=== PATIENT | female | born 1935 | race Caucasian/White ===

== ENCOUNTER 2017-03-20 21:14 | Emergency (ER) | payer MEDICARE, BC ==
--- NOTE | 2017-03-20 21:25 | EDM.PDOC ---
ED HPI GENERAL MEDICAL PROBLEM - General Chief Complaint: Neuro Symptoms/Deficits Stated Complaint: GENERAL, COMING BY AMBULANCE Time Seen by Provider: 03/20/17 21:20 Source of Information: Reports: EMS History Limitations: Reports: Physical Impairment - History of Present Illness INITIAL COMMENTS - FREE TEXT/NARRATIVE: EMS states were called to stroke by pt's niece who states pt was fine @ 8:30pm last night then ~ 1/2 hour ago notice pt's speech was slurred on the phone. pt' s neighbour states pt's speech seems to be more slurring than usual. pt alert smiling pleasant in no acute distress. follows commands and understands questions but with slurred speech. - Related Data Allergies Allergy/AdvReac Type Severity Reaction Status Date / Time No Known Allergies Allergy Verified 03/20/17 22:08 Home Meds: Home Meds Atenolol [Tenormin] 50 mg PO DAILY 11/04/14 [History] Folic Acid 1,200 mcg PO DAILY 11/04/14 [History] Hydrochlorothiazide 25 mg PO DAILY 11/04/14 [History] Ibuprofen [Advil] 400 mg PO Q8HR PRN 11/04/14 [History] Methotrexate Sodium [Methotrexate] 20 mg PO WEEKLY 11/04/14 [History] Multivit &Minerals/Ferrous Fum [Complete Multivit-Mineral] 1 cap PO DAILY [History] Lisinopril 10 mg PO DAILY 08/19/15 [History] Past Medical History Cardiovascular History: Reports: Hypertension Respiratory History: Reports: COPD Musculoskeletal History: Reports: Osteoarthritis, RA Oncologic (Cancer) History: Reports: Ovarian - Infectious Disease History Infectious Disease History: Reports: Chicken Pox, Measles Social & Family History - Tobacco Use Smoking Status *Q: Never Smoker Second Hand Smoke Exposure: Yes - Alcohol Use Days Per Week of Alcohol Use: 0 - Recreational Drug Use Recreational Drug Use: No - Living Situation & Occupation Living situation: Reports: , Alone Occupation: Retired ED ROS GENERAL - Review of Systems Review Of Systems: ROS reveals no pertinent complaints other than HPI. ED EXAM, NEURO - Physical Exam Exam: See Below Exam Limited By: No Limitations General Appearance: Alert, WD/WN, No Apparent Distress Eye Exam: Bilateral Eye: PERRL (pupils ess ER @ 4mm), Other (ext strabismus iwth right pointingmore lateral, been like that for long time.) Ears: Hearing Grossly Normal Throat/Mouth: Normal Voice, No Airway Compromise Head Exam: Atraumatic Neck: Non-Tender, Full Range of Motion Respiratory/Chest: No Respiratory Distress Cardiovascular: Regular Rate, Rhythm GI/Abdominal: Soft, Non-Tender Neurological: Alert, No Motor/Sensory Deficits, Other (face symmetrical, limbs equal ) Psychiatric: Normal Affect, Normal Mood Skin Exam: Warm, Dry, Normal Color Course - Vital Signs Last Recorded V/S: Last Vital Signs Temp 36.4 C 03/20/17 22:19 Pulse 74 03/20/17 22:19 Resp 20 03/20/17 22:19 BP 184/83 H 03/20/17 22:19 Pulse Ox 95 03/20/17 22:19 - Orders/Labs/Meds Orders: Active Orders 24 hr Category Date Time Status EKG 12 Lead [EKG Documentation Completion] [RC] URGENT Care 03/20/17 22:17 Active Labs: Laboratory Tests 03/20/17 03/20/17 03/20/17 Range/Units 21:26 21:26 21:26 WBC 5.5 (5.0-10.0) 10^3/uL RBC 5.29 (4.2-5.4) 10^6/uL Hgb 15.0 (12.0-16.0) g/dL Hct 44.9 (37.0-47.0) % MCV 84.9 (80-100) fL MCH 28.4 (27.0-34.0) pg MCHC 33.4 (33.0-35.0) g/dL Plt Count 165 (150-450) 10^3/uL Neut % (Auto) 74.7 (42.2-75.2) % Lymph % (Auto) 18.7 L (20.5-50.1) % [place] % (Auto) 6.2 (2-8) % Eos % (Auto) 0.2 L (1.0-3.0) % Baso % (Auto) 0.2 (0.0-1.0) % PT 10.4 (9.0-12.0) SEC INR 1.0 (0.9-1.2) APTT 24.7 (22.0-34.0) SEC Sodium 140 (135-145) mmol/L Potassium 4.0 (3.6-5.0) mmol/L Chloride 102 (101-111) mmol/L Carbon Dioxide 25.0 (21.0-31.0) mmol/L Anion Gap 17.0 BUN 16 (7-18) mg/dL Creatinine 0.8 (0.6-1.3) mg/dL Est Cr Clr Drug Dosing 46.82 mL/min Estimated GFR (MDRD) > 60 BUN/Creatinine Ratio 20.00 Glucose 128 H (74-105) mg/dL Calcium 9.3 (8.4-10.2) mg/dl Total Bilirubin 0.9 (0.2-1.0) mg/dL AST 23 (10-42) IU/L ALT 11 (10-60) IU/L Alkaline Phosphatase 67 (42-121) IU/L Troponin I 0.28 H* (0.00-0.02) ng/ml Total Protein 7.4 (6.7-8.2) g/dl Albumin 3.7 (3.2-5.5) g/dl Globulin 3.7 Albumin/Globulin Ratio 1.00 - Re-Assessments/Exams Free Text/Narrative Re-Assessment/Exam: 03/20/17 22:25 results discussed with pt & family case discussed with Dr Tong @ who kindly accepted pt. Departure - Departure Time of Disposition: 22:26 Disposition: DC/Tfer to Acute Hospital 02 Condition: Fair Clinical Impression: Elevated troponin, Ventricular arrhythmia CVA (cerebral vascular accident) Qualifiers: CVA mechanism: unspecified Qualified Code(s): I63.9 - Cerebral infarction, unspecified Cardiac arrhythmia Qualifiers: Arrhythmia type: atrial fibrillation Atrial fibrillation type: paroxysmal Qualified Code(s): I48.0 - Paroxysmal atrial fibrillation - Discharge Information Forms: Interfacility Transfer EMTALA - My Orders Last 24 Hours: My Active Orders 03/20/17 22:17 EKG 12 Lead [EKG Documentation Completion] [RC] URGENT - Assessment/Plan Last 24 Hours: My Active Orders 03/20/17 22:17 EKG 12 Lead [EKG Documentation Completion] [RC] URGENT
[2017-03-20 21:51] LABS: CHLORIDE,CL 102 mmol/L (101-111); SODIUM,NA 140 mmol/L (135-145)
[2017-03-20 22:21] VITALS: BP 184/83
--- NOTE | 2017-04-06 11:08 | EKG ---
03/20/2017- BHARAT LITTLEJOHN - This is a standard 12-lead EKG showing atrial fibrillation with ventricular rate of 137 beats per minute, multiple premature ventricular complexes, left bundle branch block. [facility] /[id number]
--- NOTE | 2017-04-06 11:11 | EKG ---
03/20/2017- BHARAT LITTLEJOHN - This is a standard 12-lead EKG showing atrial fibrillation with ventricular rate of 137 beats per minute. There are multiple premature complexes, left bundle branch block. [facility] /[id number]
== END 2017-03-20 22:50 ==
LOC: DL.ED 21:14
DX: I63.9 Cerebral infarction, unspecified (principal); I48.0 Paroxysmal atrial fibrillation; R79.89 Other specified abnormal findings of blood chemistry; I10 Essential (primary) hypertension; J44.9 Chronic obstructive pulmonary disease, unspecified; M19.90 Unspecified osteoarthritis, unspecified site; Z85.43 Personal history of malignant neoplasm of ovary; Z79.899 Other long term (current) drug therapy
CPT/HCPCS: 36415; 70450; 80053; 84484; 85025; 85610; 85730; 93005; 93010; 99285

== ENCOUNTER 2019-12-24 19:22 | Inpatient (IN) | payer MEDICARE, BC ==
[2019-12-24] MEDS ORDERED: Albuterol/Ipratropium 3.0-0.5 MG/3 ML Neb Soln NEB ONE (19:31)
[2019-12-24] MEDS ORDERED: methylPREDNISolone Sodium Succinate 125 MG/2 ML SDV IVPUSH ONE (19:31)
--- NOTE | 2019-12-24 19:34 | EDM.PDOC ---
ED HPI GENERAL MEDICAL PROBLEM - General Chief Complaint: Respiratory Problem Stated Complaint: HAVING TROUBLE BREATHING Time Seen by Provider: 12/24/19 19:32 Source of Information: Reports: Patient History Limitations: Reports: No Limitations - History of Present Illness INITIAL COMMENTS - FREE TEXT/NARRATIVE: SOB on Tues got better then again today but not getting helping. no CP. no neb or inhaler. - Related Data Allergies Allergy/AdvReac Type Severity Reaction Status Date / Time No Known Allergies Allergy Verified 12/24/19 19:29 Home Meds: Home Meds Folic Acid 1,200 mcg PO DAILY 11/04/14 [History] Ibuprofen [Advil] 400 mg PO Q8HR PRN 11/04/14 [History] Methotrexate Sodium [Methotrexate] 20 mg PO WEEKLY 11/04/14 [History] Multivit-Min/Ferrous Fumarate [Complete Multivit-Mineral] 1 cap PO DAILY [History] atenoloL [Tenormin] 50 mg PO DAILY 11/04/14 [History] hydroCHLOROthiazide [Hydrochlorothiazide] 25 mg PO DAILY 11/04/14 [History] Lisinopril 10 mg PO DAILY 08/19/15 [History] Past Medical History HEENT History: Reports: Other (See Below) Other HEENT History: lasy eye. 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 ED EXAM, GENERAL - Physical Exam Exam: See Below Exam Limited By: No Limitations General Appearance: Alert, WD/WN, Mild Distress, Other (discomfort) Ears: Hearing Grossly Normal Throat/Mouth: Normal Voice, No Airway Compromise Head: Atraumatic Neck: Non-Tender, Full Range of Motion Respiratory/Chest: No Accessory Muscle Use, Decreased Breath Sounds, Rhonchi, Wheezing Cardiovascular: Regular Rate, Rhythm GI/Abdominal: Soft, Non-Tender Extremities: Pedal Edema (1+ bilateral), Other (3+ bilateral) Neurological: Alert, Oriented, Normal Cognition, Normal Gait, No Motor/Sensory Deficits Psychiatric: Normal Affect, Normal Mood Skin Exam: Warm, Dry, Normal Color Lymphatic: No Adenopathy Course - Vital Signs Last Recorded V/S: Last Vital Signs Temp 36.7 C 12/24/19 19:31 Pulse 131 H 12/24/19 19:31 Resp 24 H 12/24/19 19:31 BP 153/118 H 12/24/19 19:31 Pulse Ox 97 12/24/19 19:31 - Orders/Labs/Meds Orders: Active Orders 24 hr Category Date Time Status EKG Documentation Completion [RC] ROUTINE Care 12/24/19 19:37 Active RT Aerosol Therapy [RC] ASDIRECTED Care 12/24/19 19:31 Active Chest 1V Frontal [CR] Urgent Exams 12/24/19 19:30 Taken Labs: Laboratory Tests 12/24/19 12/24/19 12/24/19 Range/Units 19:42 19:42 19:42 WBC 10.7 H (5.0-10.0) 10^3/uL RBC 4.86 (4.2-5.4) 10^6/uL Hgb 14.6 (12.0-16.0) g/dL Hct 44.8 (37.0-47.0) % MCV 92.2 D (80-100) fL MCH 30.0 (27.0-34.0) pg MCHC 32.6 L (33.0-35.0) g/dL Plt Count 179 (150-450) 10^3/uL Neut % (Auto) 82.4 H (42.2-75.2) % Lymph % (Auto) 11.3 L (20.5-50.1) % [place] % (Auto) 6.0 (2-8) % Eos % (Auto) 0.1 L (1.0-3.0) % Baso % (Auto) 0.2 (0.0-1.0) % Sodium 141 (136-145) mmol/L Potassium 3.7 (3.5-5.1) mmol/L Chloride 102 (98-107) mmol/L Carbon Dioxide 24 (21-32) mmol/L Anion Gap 18.7 H (7-13) mEq/L BUN 19 H (7-18) mg/dL Creatinine 1.29 H (0.55-1.02) mg/dL Est Cr Clr Drug Dosing 22.90 mL/min Estimated GFR (MDRD) 39 BUN/Creatinine Ratio 14.7 (No establ ref range) Glucose 188 H (74-99) mg/dL Lactic Acid 4.5 H* (0.4-2.0) mmol/L Calcium 9.5 (8.5-10.1) mg/dL Total Bilirubin 1.1 H (0.2-1.0) mg/dL AST 20 (15-37) U/L ALT 19 (14-59) U/L Alkaline Phosphatase 74 (46-116) U/L Troponin I < 0.017 (0.000-0.056) ng/mL B-Natriuretic Peptide 508 H (0-100) pg/ml Total Protein 7.1 (6.4-8.2) g/dL Albumin 3.3 L (3.4-5.0) g/dL Globulin 3.8 Albumin/Globulin Ratio 0.87 SARS-CoV-2 RNA (RT-PCR) (NEGATIVE) 12/24/19 Range/Units 21:05 WBC (5.0-10.0) 10^3/uL RBC (4.2-5.4) 10^6/uL Hgb (12.0-16.0) g/dL Hct (37.0-47.0) % MCV (80-100) fL MCH (27.0-34.0) pg MCHC (33.0-35.0) g/dL Plt Count (150-450) 10^3/uL Neut % (Auto) (42.2-75.2) % Lymph % (Auto) (20.5-50.1) % [place] % (Auto) (2-8) % Eos % (Auto) (1.0-3.0) % Baso % (Auto) (0.0-1.0) % Sodium (136-145) mmol/L Potassium (3.5-5.1) mmol/L Chloride (98-107) mmol/L Carbon Dioxide (21-32) mmol/L Anion Gap (7-13) mEq/L BUN (7-18) mg/dL Creatinine (0.55-1.02) mg/dL Est Cr Clr Drug Dosing mL/min Estimated GFR (MDRD) BUN/Creatinine Ratio (No establ ref range) Glucose (74-99) mg/dL Lactic Acid (0.4-2.0) mmol/L Calcium (8.5-10.1) mg/dL Total Bilirubin (0.2-1.0) mg/dL AST (15-37) U/L ALT (14-59) U/L Alkaline Phosphatase (46-116) U/L Troponin I (0.000-0.056) ng/mL B-Natriuretic Peptide (0-100) pg/ml Total Protein (6.4-8.2) g/dL Albumin (3.4-5.0) g/dL Globulin Albumin/Globulin Ratio SARS-CoV-2 RNA (RT-PCR) Negative (NEGATIVE) Meds: Medications Discontinued Medications Generic Name Dose Route Start Last Admin Trade Name Freq PRN Reason Stop Dose Admin Albuterol/Ipratropium 3 ml 12/24/19 19:31 12/24/19 19:40 Duoneb 3.0-0.5 Mg/3 Ml NEB 12/24/19 19:32 3 ml ONETIME ONE Administration Furosemide 20 mg 12/24/19 20:18 12/24/19 20:28 Lasix IVPUSH 12/24/19 20:19 20 mg ONETIME ONE Administration Methylprednisolone Sodium Succinate 125 mg 12/24/19 19:31 12/24/19 19:40 Solu-Medrol IVPUSH 12/24/19 19:32 125 mg ONETIME ONE Administration - Re-Assessments/Exams Free Text/Narrative Re-Assessment/Exam: 12/24/19 21:[address] Hammond who kindly admitted pt. Departure - Departure Time of Disposition: 21:49 Disposition: Admitted As Inpatient 66 Condition: Good Clinical Impression: COLD, Chronic obstructive lung disease, Elevated brain natriuretic peptide (BNP ) level CHF (congestive heart failure) Qualifiers: Heart failure type: unspecified Heart failure chronicity: acute Qualified Code( s): I50.9 - Heart failure, unspecified Pulmonary edema Qualifiers: Chronicity: acute Qualified Code(s): J81.0 - Acute pulmonary edema - Discharge Information Forms: ED Department Discharge Sepsis Event Note - Focused Exam Vital Signs: Vital Signs Temp Pulse Resp BP Pulse Ox 12/24/19 19:31 36.7 C 131 H 24 H 153/118 H 97 Date Exam was Performed: 12/24/19 Time Exam was Performed: 21:48 - My Orders Last 24 Hours: My Active Orders 12/24/19 19:30 Chest 1V Frontal [CR] Urgent 12/24/19 19:31 RT Aerosol Therapy [RC] ASDIRECTED 12/24/19 19:37 EKG Documentation Completion [RC] ROUTINE - Assessment/Plan Last 24 Hours: My Active Orders 12/24/19 19:30 Chest 1V Frontal [CR] Urgent 12/24/19 19:31 RT Aerosol Therapy [RC] ASDIRECTED 12/24/19 19:37 EKG Documentation Completion [RC] ROUTINE
[2019-12-24] MEDS ORDERED: Furosemide 20 MG/2 ML VIAL IVPUSH ONE (20:18)
[2019-12-24 20:35] LABS: ANION GAP 18.7 mEq/L (7-13); CHLORIDE,CL 102 mmol/L (98-107); SODIUM,NA 141 mmol/L (136-145)
--- NOTE | 2019-12-24 22:27 | PCM.HP ---
H&P History of Present Illness - General Date of Service: 12/24/19 Admit Problem/Dx: Admission Diagnosis/Problem Admission Diagnosis/Problem Pulmonary edema Source of Information: Patient, EMS, Old Records History Limitations: Reports: No Limitations - History of Present Illness Initial Comments - Free Text/Narative: This is a 84 y/o F [facility] past medical history of Ovarian cancer - status post total abdominal hysterectomy without recurrence,Rheumatoid arthritis ( follwed by Dr. 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 She is anticoagulated,with warfarin , She has mild residual weakness to right side following CVA, Atrial fibrillation - chronic. Anticoagulated with warfarin,Heart failure with reduced ejection fraction, NYHA class II - follows with Cardiology , Hypothyroidism, who presented to ER with increased shortness of breath for the last 3-4 days but getting worse. CXR in ER showed "bilateral basilar alveolar densities consistent with pulmonary edema or Multifocal Pneumonia, Mild cardiomegaly and vascular congestion, suspect underlying COPD,Osteopenia" she also had Rapid COVID-19 and it was Negative. She is admitted for Pulmonary edema/Pneumonia Onset of Symptoms: Reports: Gradual Duration of Symptoms: Reports: Day(s): Associated Symptoms: Reports: Weakness - Related Data Allergies/Adverse Reactions: Allergies Allergy/AdvReac Type Severity Reaction Status Date / Time No Known Allergies Allergy Verified 12/24/19 19:29 Home Medications: Home Meds Methotrexate Sodium [Methotrexate] 20 mg PO WEEKLY 11/04/14 [History] hydroCHLOROthiazide [Hydrochlorothiazide] 25 mg PO DAILY 11/04/14 [History] Acetaminophen [Tylenol] 650 mg PO BID 12/24/19 [History] Aspirin 81 mg PO DAILY 12/24/19 [History] DULoxetine [Cymbalta] 1 cap PO DAILY 12/24/19 [History] FA/Lycopene/Lut/MV,Ca,Iron,Min [Centrum] 1 tab PO DAILY 12/24/19 [History] Folic Acid 1,200 mcg PO DAILY 12/24/19 [History] Levothyroxine 25 mcg PO ACBREAKFAST 12/24/19 [History] Metoprolol Succinate [Toprol XL 100mg] 100 mg PO DAILY 12/24/19 [History] Warfarin [Coumadin] 0.5 mg PO DAILY 05/24/20 [History] Warfarin [Coumadin] 1 mg PO ASDIRECTED 12/24/19 [History] atorvaSTATin [Lipitor] 20 mg PO BEDTIME 12/24/19 [History] predniSONE [Prednisone] 5 mg PO BEDTIME 12/24/19 [History] Past Medical History HEENT History: Reports: Other (See Below) Other HEENT History: lasy eye. 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: Musculoskeletal History: Reports: Osteoarthritis, RA Neurological History: Reports: CVA Oncologic (Cancer) History: Reports: Ovarian - Infectious Disease History Infectious Disease History: Reports: Chicken Pox, Measles - Past Surgical History GI Surgical History: Reports: Appendectomy Social & Family History - Family History Family Medical History: Noncontributory - Tobacco Use Smoking Status *Q: Unknown Ever Smoked - Caffeine Use Caffeine Use: Reports: Coffee - Recreational Drug Use Recreational Drug Use: No - Living Situation & Occupation Living situation: Reports: , Alone Occupation: Retired H&P Review of Systems - Review of Systems: Review Of Systems: See Below General: Reports: Weakness. Denies: Fever, Chills, Weight Loss HEENT: Denies: Headaches, Hearing Changes, Sinus Congestion, Sore Throat, Visual Changes Pulmonary: Reports: Shortness of Breath. Denies: Wheezing, Cough, Sputum Cardiovascular: Denies: Chest Pain, Palpitations, Lightheadedness Gastrointestinal: Denies: Abdominal Pain, Constipation, Diarrhea, Difficulty Swallowing, Nausea, Vomiting Genitourinary: Denies: Dysuria, Frequency, Urgency, Flank Pain Musculoskeletal: Denies: Neck Pain, Back Pain, Muscle Stiffness Skin: Denies: Cyanosis, Bruising, Pruritis, Rash Psychiatric: Denies: Confusion, Hallucinations Neurological: Denies: Confusion, Dizziness, Tremors Hematologic/Lymphatic: Reports: No Symptoms Immunologic: Reports: No Symptoms Exam - Exam Exam: See Below - Vital Signs Vital Signs: Last Vital Signs Temp 36.7 C 12/24/19 19:31 Pulse 131 H 12/24/19 19:31 Resp 24 H 12/24/19 19:31 BP 153/118 H 12/24/19 19:31 Pulse Ox 97 12/24/19 19:31 Weight: 59.829 kg - Exam Quality Assessment: Supplemental Oxygen, DVT Prophylaxis. No: Urinary Catheter General: Alert, Oriented, Cooperative HEENT: EOMI, Hearing Intact, Mucosa Moist & [place], Pupils Equal Neck: Supple. No: JVD, Thyromegaly Lungs: Clear to Auscultation, Normal Respiratory Effort, Crackles. No: Wheezing Cardiovascular: Irregular Rhythm, Systolic Murmur GI/Abdominal Exam: Normal Bowel Sounds, Soft, Non-Tender. No: Guarding, Rigid, Rebound, Tender (Female) Exam: Deferred Rectal (Female) Exam: Deferred Back Exam: Normal Inspection Extremities: Normal Inspection, Pedal Edema Skin: Warm, Dry, Intact Neurological: Cranial Nerves Intact, Reflexes Equal Bilateral Neuro Extensive - Mental Status: Alert, Oriented x3, Normal Mood/Affect, Normal Cognition, Memory Intact Neuro Extensive - Motor, Sensory, Reflexes: CN II-XII Intact, Normal Gait, Normal Reflexes Psychiatric: Alert, Normal Affect, Normal Mood - Patient Data Lab Results Last 24 hrs: Laboratory Results - last 24 hr 12/24/19 12/24/19 12/24/19 Range/Units 19:42 19:42 19:42 WBC 10.7 H (5.0-10.0) 10^3/uL RBC 4.86 (4.2-5.4) 10^6/uL Hgb 14.6 (12.0-16.0) g/dL Hct 44.8 (37.0-47.0) % MCV 92.2 D (80-100) fL MCH 30.0 (27.0-34.0) pg MCHC 32.6 L (33.0-35.0) g/dL Plt Count 179 (150-450) 10^3/uL Neut % (Auto) 82.4 H (42.2-75.2) % Lymph % (Auto) 11.3 L (20.5-50.1) % [place] % (Auto) 6.0 (2-8) % Eos % (Auto) 0.1 L (1.0-3.0) % Baso % (Auto) 0.2 (0.0-1.0) % Sodium 141 (136-145) mmol/L Potassium 3.7 (3.5-5.1) mmol/L Chloride 102 (98-107) mmol/L Carbon Dioxide 24 (21-32) mmol/L Anion Gap 18.7 H (7-13) mEq/L BUN 19 H (7-18) mg/dL Creatinine 1.29 H (0.55-1.02) mg/dL Est Cr Clr Drug Dosing 22.90 mL/min Estimated GFR (MDRD) 39 BUN/Creatinine Ratio 14.7 (No establ ref range) Glucose 188 H (74-99) mg/dL Lactic Acid 4.5 H* (0.4-2.0) mmol/L Calcium 9.5 (8.5-10.1) mg/dL Total Bilirubin 1.1 H (0.2-1.0) mg/dL AST 20 (15-37) U/L ALT 19 (14-59) U/L Alkaline Phosphatase 74 (46-116) U/L Troponin I < 0.017 (0.000-0.056) ng/mL B-Natriuretic Peptide 508 H (0-100) pg/ml Total Protein 7.1 (6.4-8.2) g/dL Albumin 3.3 L (3.4-5.0) g/dL Globulin 3.8 Albumin/Globulin Ratio 0.87 SARS-CoV-2 RNA (RT-PCR) (NEGATIVE) 12/24/19 Range/Units 21:05 WBC (5.0-10.0) 10^3/uL RBC (4.2-5.4) 10^6/uL Hgb (12.0-16.0) g/dL Hct (37.0-47.0) % MCV (80-100) fL MCH (27.0-34.0) pg MCHC (33.0-35.0) g/dL Plt Count (150-450) 10^3/uL Neut % (Auto) (42.2-75.2) % Lymph % (Auto) (20.5-50.1) % [place] % (Auto) (2-8) % Eos % (Auto) (1.0-3.0) % Baso % (Auto) (0.0-1.0) % Sodium (136-145) mmol/L Potassium (3.5-5.1) mmol/L Chloride (98-107) mmol/L Carbon Dioxide (21-32) mmol/L Anion Gap (7-13) mEq/L BUN (7-18) mg/dL Creatinine (0.55-1.02) mg/dL Est Cr Clr Drug Dosing mL/min Estimated GFR (MDRD) BUN/Creatinine Ratio (No establ ref range) Glucose (74-99) mg/dL Lactic Acid (0.4-2.0) mmol/L Calcium (8.5-10.1) mg/dL Total Bilirubin (0.2-1.0) mg/dL AST (15-37) U/L ALT (14-59) U/L Alkaline Phosphatase (46-116) U/L Troponin I (0.000-0.056) ng/mL B-Natriuretic Peptide (0-100) pg/ml Total Protein (6.4-8.2) g/dL Albumin (3.4-5.0) g/dL Globulin Albumin/Globulin Ratio SARS-CoV-2 RNA (RT-PCR) Negative (NEGATIVE) Result Diagrams: 12/24/19 19:42 12/24/19 19:42 - Problem List (1) Chronic a-fib SNOMED Code(s): 090988652 ICD Code: I48.20 - CHRONIC ATRIAL FIBRILLATION, UNSPECIFIED Status: Acute Current Visit: Yes (2) CHF (congestive heart failure) SNOMED Code(s): 03027894 ICD Code: I50.9 - HEART FAILURE, UNSPECIFIED Status: Acute Current Visit : Yes Qualifiers: Heart failure type: unspecified Heart failure chronicity: acute Qualified Code(s): I50.9 - Heart failure, unspecified (3) COLD, Chronic obstructive lung disease SNOMED Code(s): 43214646 ICD Code: J44.9 - CHRONIC OBSTRUCTIVE PULMONARY DISEASE, UNSPECIFIED Status : Acute Current Visit: Yes (4) Pulmonary edema SNOMED Code(s): 62191722 ICD Code: J81.1 - CHRONIC PULMONARY EDEMA Status: Acute Current Visit: Yes Qualifiers: Chronicity: acute Qualified Code(s): J81.0 - Acute pulmonary edema Problem List Initiated/Reviewed/Updated: Yes Orders Last 24hrs: Active Orders 24 hr Category Date Time Status Admission Diagnosis [ADT] Stat ADT 12/24/19 21:51 Ordered Admission Status [Patient Status] [ADT] Routine ADT 12/24/19 21:51 Active EKG Documentation Completion [RC] ROUTINE Care 12/24/19 19:37 Active RT Aerosol Therapy [RC] ASDIRECTED Care 12/24/19 19:31 Active Chest 1V Frontal [CR] Urgent Exams 12/24/19 19:30 Taken Assessment/Plan Comment:: Msd. Deloris walters 84 y.o.female with history of congestive heart failure., history of CVA, atrial fibrillation with RVR, hypothyroidism, hypertension, ovarian cancer, and rheumatoid arthritis presented to ER with increased shortness of breath and CXR showed pulmonary edema/Pneumonia Impression and plan: 1. Increased shortness of breath : CXR consistent with pulmonary edema/ Pneumonia -Will start Zosyn 3.375 mg IV q8 hrs -Will start lasix 40 mg IV BID -Continue I/O recording -Wean off oxygen as tolerated -Will give Duoneb PRN, keep o2 sat at >90 -Will encourage using incentive spirometry/flutter valve 2. Acute on Chronic CHF: pt has Pulmonary Edema on CXR -Will start lasix 40 mg IV BID -Continue I/O recording and daily weight 3. Hypertension: BP acceptable and will continue Metoprolol at 100 mg daily and hold lisinopril [ was at 10 mg daily, holding because needs aggressive diuresis] and start Cardizem 30 mg q6 hrs 4. Chronic A-fib: Rate is controlled with Metoprolol and on chronic anticoagulation with warfarin, pharmacy to dose warfarin while admitted in hospital 5. Rheumatoid Arthritis: On Methotrexate at 20 mg daily and prednisone at 5 mg daily and folic acid 1200 mcg daily 6. Hypothyroidism: she is on Levothyroxine at 37.5 mg daily DVT prophylaxis: On chronic anticoagulation, continue with SCD GI prophylaxis: Continue with PPI Code status: Discussed with Pt and she is full code
[2019-12-24] MEDS ORDERED: Albuterol/Ipratropium 3.0-0.5 MG/3 ML Neb Soln NEB PRN (23:28)
[2019-12-25] MEDS ORDERED: Piperacillin/Tazobactam 3.375 GM in Sodium Chloride 0.9% 100 ML IV SCH ×2
[2019-12-25] MEDS: Furosemide 40 MG/4 ML VIAL IVPUSH SCH ×2 (00:07→09:56)
[2019-12-25] MEDS: Diltiazem IR 30 MG Tab PO SCH ×3 (00:07→11:26)
[2019-12-25] MEDS ORDERED: [UNRECOGNIZED DRUG - REMARK] PO ONE (00:30)
[2019-12-25] MEDS: Piperacillin/Tazobactam 2.25 GM in Sodium Chloride 0.9% 50 ML IV SCH ×2 (06:00→11:26)
[2019-12-25] MEDS ORDERED: Levothyroxine 25 MCG Tab PO SCH (06:00)
[2019-12-25 06:41] LABS: ANION GAP 13.4 mEq/L (7-13)
[2019-12-25] MEDS ORDERED: Potassium Chloride 10 MEQ Tab.ER PO ONE ×2 (07:21→10:00)
[2019-12-25] MEDS ORDERED: Aspirin 81 MG Tab.Chew PO SCH (09:00)
[2019-12-25] MEDS ORDERED: Metoprolol Succinate 50 MG Tab.ER PO SCH (09:00)
[2019-12-25] MEDS ORDERED: Hydrochlorothiazide 25 MG Tab PO SCH (09:00)
[2019-12-25] MEDS ORDERED: Methotrexate 2.5 MG Tab PO SCH (09:00)
[2019-12-25] MEDS ORDERED: DULoxetine 30 MG Cap PO SCH (09:00)
[2019-12-25] MEDS ORDERED: Folic Acid 1 MG Tab PO SCH (09:00)
[2019-12-25] MEDS ORDERED: Acetaminophen 325 MG Tab PO SCH (09:00)
[2019-12-25] MEDS ORDERED: Non-Formulary Medication 1 Each (Warfarin 0.5 MG) PO SCH (09:00)
--- NOTE | 2019-12-25 10:10 | PCM.DCSUM1 ---
Discharge Summary - Hospital Course Free Text/Narrative:: This is a 84 y/o F wth past medical history of Ovarian cancer - status post total abdominal hysterectomy without recurrence,Rheumatoid arthritis ( follwed by Dr. 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 She is anticoagulated,with warfarin , She has mild residual weakness to right side following CVA, Atrial fibrillation - chronic. Anticoagulated with warfarin,Heart failure with reduced ejection fraction, NYHA class II - follows with Cardiology , Hypothyroidism, who was admitted for acute CHF exacerbation. Patient had pulmonary edema and possible pulmonary future. She was started on IV Lasix and IV Zosyn. Patient's edema improved. Respiratory status improved. She is being discharged home to continue oral Lasix and says Cefpodoxime. She is to follow-up with PCP. HPI Initial Comments: This is a 84 y/o F wth past medical history of Ovarian cancer - status post total abdominal hysterectomy without recurrence,Rheumatoid arthritis ( follwed by Dr. 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 She is anticoagulated,with warfarin , She has mild residual weakness to right side following CVA, Atrial fibrillation - chronic. Anticoagulated with warfarin,Heart failure with reduced ejection fraction, NYHA class II - follows with Cardiology , Hypothyroidism, who presented to ER with increased shortness of breath for the last 3-4 days but getting worse. CXR in ER showed "bilateral basilar alveolar densities consistent with pulmonary edema or Multifocal Pneumonia, Mild cardiomegaly and vascular congestion, suspect underlying COPD,Osteopenia" she also had Rapid COVID-19 and it was Negative. She is admitted for Pulmonary edema/Pneumonia Diagnosis: Stroke: No - Discharge Data Discharge Date: 12/25/19 Discharge Disposition: Home, Self-Care 01 Condition: Stable - Referral to Home Health Primary Care Physician: Jodi Gill NP - Discharge Plan *PRESCRIPTION DRUG MONITORING PROGRAM REVIEWED*: No *COPY OF PRESCRIPTION DRUG MONITORING REPORT IN PATIENT MELECIO: No Prescriptions/Med Rec: Cefpodoxime [Vantin] 200 mg PO BID #4 tab Home Medications: Home Meds Methotrexate Sodium [Methotrexate] 20 mg PO WEEKLY 11/04/14 [History] hydroCHLOROthiazide [Hydrochlorothiazide] 25 mg PO DAILY 04/05/15 [History] Acetaminophen [Tylenol] 650 mg PO BID 12/24/19 [History] Aspirin 81 mg PO DAILY 12/24/19 [History] DULoxetine [Cymbalta] 1 cap PO DAILY 12/24/19 [History] FA/Lycopene/Lut/MV,Ca,Iron,Min [Centrum] 1 tab PO DAILY 12/24/19 [History] Folic Acid 1,200 mcg PO DAILY 12/24/19 [History] Levothyroxine 25 mcg PO ACBREAKFAST 12/24/19 [History] Metoprolol Succinate [Toprol XL 100mg] 100 mg PO DAILY 12/24/19 [History] Warfarin [Coumadin] 0.5 mg PO ASDIRECTED 12/24/19 [History] Warfarin [Coumadin] 1 mg PO ASDIRECTED 12/24/19 [History] atorvaSTATin [Lipitor] 20 mg PO BEDTIME 12/24/19 [History] lisinopriL [Lisinopril] 10 mg PO DAILY 12/24/19 [History] predniSONE [Prednisone] 5 mg PO BEDTIME 12/24/19 [History] Cefpodoxime [Vantin] 200 mg PO BID #4 tab 12/25/19 [Rx] Furosemide [Lasix] 20 mg PO DAILY 12/25/19 [History] Patient Handouts: Heart Failure, [id number], Edema, [id number], Pulmonary Edema, [id number] Referrals: Jodi Gill NURSE RESEARCH [Primary Care Provider] - - Discharge Summary/Plan Comment DC Time >30 min.: Yes - General Info Date of Service: 12/25/19 Admission Dx/Problem (Free Text: Admission Diagnosis/Problem Admission Diagnosis/Problem Pulmonary edema Subjective Update: No acute events overnight. Reports that edema of lower extremities is improved. Denies shortness of breath, cough, fevers, chills, nausea, vomiting, diarrhea, constipation, dysuria, hematuria, or any new symptoms. - Patient Data Vitals - Most Recent: Last Vital Signs Temp 99.5 F 12/25/19 08:00 Pulse 88 12/25/19 09:55 Resp 18 12/25/19 08:00 BP 130/82 12/25/19 09:55 Pulse Ox 94 L 12/25/19 08:00 Weight - Most Recent: 120 lb I&O - Last 24 hours: Intake & Output 12/24/19 12/25/19 12/25/19 22:59 06:59 14:59 Intake Total 190 240 Output Total 2325 Balance -2135 240 Lab Results - Last 24 hrs: Laboratory Results - last 24 hr 12/24/19 12/24/19 12/24/19 Range/Units 19:42 19:42 19:42 WBC 10.7 H (5.0-10.0) 10^3/uL RBC 4.86 (4.2-5.4) 10^6/uL Hgb 14.6 (12.0-16.0) g/dL Hct 44.8 (37.0-47.0) % MCV 92.2 D (80-100) fL MCH 30.0 (27.0-34.0) pg MCHC 32.6 L (33.0-35.0) g/dL Plt Count 179 (150-450) 10^3/uL Neut % (Auto) 82.4 H (42.2-75.2) % Lymph % (Auto) 11.3 L (20.5-50.1) % Tompkins % (Auto) 6.0 (2-8) % Eos % (Auto) 0.1 L (1.0-3.0) % Baso % (Auto) 0.2 (0.0-1.0) % PT (9.0-12.0) SEC INR (0.9-1.2) Sodium 141 (136-145) mmol/L Potassium 3.7 (3.5-5.1) mmol/L Chloride 102 (98-107) mmol/L Carbon Dioxide 24 (21-32) mmol/L Anion Gap 18.7 H (7-13) mEq/L BUN 19 H (7-18) mg/dL Creatinine 1.29 H (0.55-1.02) mg/dL Est Cr Clr Drug Dosing 22.90 mL/min Estimated GFR (MDRD) 39 BUN/Creatinine Ratio 14.7 (No establ ref range) Glucose 188 H (74-99) mg/dL Lactic Acid 4.5 H* (0.4-2.0) mmol/L Calcium 9.5 (8.5-10.1) mg/dL Total Bilirubin 1.1 H (0.2-1.0) mg/dL AST 20 (15-37) U/L ALT 19 (14-59) U/L Alkaline Phosphatase 74 (46-116) U/L Troponin I < 0.017 (0.000-0.056) ng/mL B-Natriuretic Peptide 508 H (0-100) pg/ml Total Protein 7.1 (6.4-8.2) g/dL Albumin 3.3 L (3.4-5.0) g/dL Globulin 3.8 Albumin/Globulin Ratio 0.87 SARS-CoV-2 RNA (RT-PCR) (NEGATIVE) 12/24/19 12/24/19 12/25/19 Range/Units 19:49 21:05 06:05 WBC 4.3 L (5.0-10.0) 10^3/uL RBC 4.89 (4.2-5.4) 10^6/uL Hgb 14.6 (12.0-16.0) g/dL Hct 43.9 (37.0-47.0) % MCV 89.8 (80-100) fL MCH 29.9 (27.0-34.0) pg MCHC 33.3 (33.0-35.0) g/dL Plt Count 149 L (150-450) 10^3/uL Neut % (Auto) 89.1 H (42.2-75.2) % Lymph % (Auto) 9.7 L (20.5-50.1) % Tompkins % (Auto) 1.2 L (2-8) % Eos % (Auto) 0.0 L (1.0-3.0) % Baso % (Auto) 0.0 (0.0-1.0) % PT 39.1 H (9.0-12.0) SEC INR 4.2 H (0.9-1.2) Sodium (136-145) mmol/L Potassium (3.5-5.1) mmol/L Chloride (98-107) mmol/L Carbon Dioxide (21-32) mmol/L Anion Gap (7-13) mEq/L BUN (7-18) mg/dL Creatinine (0.55-1.02) mg/dL Est Cr Clr Drug Dosing mL/min Estimated GFR (MDRD) BUN/Creatinine Ratio (No establ ref range) Glucose (74-99) mg/dL Lactic Acid (0.4-2.0) mmol/L Calcium (8.5-10.1) mg/dL Total Bilirubin (0.2-1.0) mg/dL AST (15-37) U/L ALT (14-59) U/L Alkaline Phosphatase (46-116) U/L Troponin I (0.000-0.056) ng/mL B-Natriuretic Peptide (0-100) pg/ml Total Protein (6.4-8.2) g/dL Albumin (3.4-5.0) g/dL Globulin Albumin/Globulin Ratio SARS-CoV-2 RNA (RT-PCR) Negative (NEGATIVE) 12/25/19 12/25/19 12/25/19 Range/Units 06:05 06:05 06:05 WBC (5.0-10.0) 10^3/uL RBC (4.2-5.4) 10^6/uL Hgb (12.0-16.0) g/dL Hct (37.0-47.0) % MCV (80-100) fL MCH (27.0-34.0) pg MCHC (33.0-35.0) g/dL Plt Count (150-450) 10^3/uL Neut % (Auto) (42.2-75.2) % Lymph % (Auto) (20.5-50.1) % Tompkins % (Auto) (2-8) % Eos % (Auto) (1.0-3.0) % Baso % (Auto) (0.0-1.0) % PT 31.3 H (9.0-12.0) SEC INR 3.3 H (0.9-1.2) Sodium 142 (136-145) mmol/L Potassium 3.4 L (3.5-5.1) mmol/L Chloride 101 (98-107) mmol/L Carbon Dioxide 31 (21-32) mmol/L Anion Gap 13.4 H (7-13) mEq/L BUN 18 (7-18) mg/dL Creatinine 1.14 H (0.55-1.02) mg/dL Est Cr Clr Drug Dosing 25.91 mL/min Estimated GFR (MDRD) 45 BUN/Creatinine Ratio (No establ ref range) Glucose 190 H (74-99) mg/dL Lactic Acid 1.8 (0.4-2.0) mmol/L Calcium 8.8 (8.5-10.1) mg/dL Total Bilirubin (0.2-1.0) mg/dL AST (15-37) U/L ALT (14-59) U/L Alkaline Phosphatase (46-116) U/L Troponin I (0.000-0.056) ng/mL B-Natriuretic Peptide (0-100) pg/ml Total Protein (6.4-8.2) g/dL Albumin (3.4-5.0) g/dL Globulin Albumin/Globulin Ratio SARS-CoV-2 RNA (RT-PCR) (NEGATIVE) Med Orders - Current: Current Medications Acetaminophen (Tylenol) 650 mg PO BID [facility] Last Admin: 12/25/19 09:56 Dose: 650 mg Albuterol/Ipratropium (Duoneb 3.0-0.5 Mg/3 Ml) 3 ml NEB Q4HRRT PRN PRN Reason: Shortness of Breath Aspirin (Aspirin) 81 mg PO DAILY [facility] Last Admin: 12/25/19 09:56 Dose: 81 mg Atorvastatin Calcium (Lipitor) 20 mg PO BEDTIME [place] Diltiazem HCl (Cardizem) 30 mg PO Q6HR [facility] Last Admin: 12/25/19 05:59 Dose: 30 mg Duloxetine HCl (Cymbalta) 30 mg PO DAILY [facility] Last Admin: 12/25/19 09:55 Dose: 30 mg Folic Acid (Folic Acid) 1 mg PO DAILY [facility] Last Admin: 12/25/19 09:54 Dose: 1 mg Furosemide (Lasix) 40 mg IVPUSH BIDDIURETIC [facility] Last Admin: 12/25/19 09:56 Dose: 40 mg Hydrochlorothiazide (Hydrochlorothiazide) 25 mg PO DAILY [facility] Last Admin: 12/25/19 09:54 Dose: 25 mg Piperacillin Sod/Tazobactam (Sod 2.25 gm/ Sodium Chloride) 50 mls @ 100 mls/hr IV Q6HR [facility] Last Admin: 12/25/19 06:00 Dose: 100 mls/hr Levothyroxine Sodium (Levothyroxine) 25 mcg PO ACBREAKFAST [facility] Last Admin: 12/25/19 05:59 Dose: 25 mcg Methotrexate (Methotrexate) 20 mg PO Mo@0900 [facility] Last Admin: 12/25/19 09:54 Dose: 20 mg Metoprolol Succinate (Toprol Xl) 100 mg PO DAILY [facility] Last Admin: 12/25/19 09:55 Dose: 100 mg Prednisone (Prednisone) 5 mg PO BEDTIME [facility] Warfarin Sodium (Pharmacy To Dose - Warfarin) 1 dose .XX ASDIRECTED [facility] Discontinued Medications Albuterol/Ipratropium (Duoneb 3.0-0.5 Mg/3 Ml) 3 ml NEB ONETIME ONE Stop: 12/24/19 19:32 Last Admin: 12/24/19 19:40 Dose: 3 ml Furosemide (Lasix) 20 mg IVPUSH ONETIME ONE Stop: 12/24/19 20:19 Last Admin: 12/24/19 20:28 Dose: 20 mg Piperacillin Sod/Tazobactam (Sod 3.375 gm/ Sodium Chloride) 100 mls @ 200 mls/ hr IV Q6H [facility] Last Admin: 12/25/19 00:37 Dose: 200 mls/hr Methylprednisolone Sodium Succinate (Solu-Medrol) 125 mg IVPUSH ONETIME ONE Stop: 12/24/19 19:32 Last Admin: 12/24/19 19:40 Dose: 125 mg Non-Formulary Medication (Warfarin) 0.5 mg PO DAILY [facility] No Warfarin Dose 0 each PO ONETIME ONE Stop: 12/25/19 00:31 Last Admin: 12/25/19 00:30 Dose: Not Given Potassium Chloride (Klor-Con 10) 40 meq PO ONETIME ONE Stop: 12/25/19 07:22 Potassium Chloride (Klor-Con 10) 40 meq PO ONETIME ONE Stop: 12/25/19 10:01 - Exam General: Reports: Alert, Oriented, Cooperative, No Acute Distress HEENT: Reports: Pupils Equal, Mucous Membr. Moist/[place] Neck: Reports: Supple, Trachea Midline Lungs: Reports: Clear to Auscultation, Normal Respiratory Effort Cardiovascular: Reports: Regular Rate, Irregular Rhythm GI/Abdominal Exam: Normal Bowel Sounds, Soft, No Distention Extremities: Pedal Edema (1+, patient and nursing staff report that this is much improved compared to presentation. ) Skin: Reports: Warm, Dry, Intact Neurological: Reports: No New Focal Deficit Psy/Mental Status: Reports: Alert, Normal Affect, Normal Mood
[2019-12-25] MEDS ORDERED: cefTRIAXone 2 GM in Sodium Chloride 0.9% 100 ML IV ONE (11:55)
[2019-12-25 12:04] VITALS: BP 122/68; PULSE 77
[2019-12-25] MEDS ORDERED: predniSONE 5 MG Tab PO SCH (21:00)
[2019-12-25] MEDS ORDERED: atorvaSTATin 20 MG Tab PO SCH (21:00)
== END 2019-12-25 13:30 | disposition home or self-care (01) | DRG 292 ==
LOC: DL.ED 19:22 → DL.MS 21:51
PROVIDERS: ADMIT Internal Medicine Nephrology; ATTEND Internal Medicine Nephrology
DX: I11.0 Hypertensive heart disease with heart failure (principal); I50.9 Heart failure, unspecified; J81.0 Acute pulmonary edema; J00 Acute nasopharyngitis [common cold]; I48.20 Chronic atrial fibrillation, unspecified; I69.951 Hemiplegia and hemiparesis following unspecified cerebrovascular disease affecting right dominant side; I50.23 Acute on chronic systolic (congestive) heart failure; M06.9 Rheumatoid arthritis, unspecified; M85.80 Other specified disorders of bone density and structure, unspecified site; E03.9 Hypothyroidism, unspecified; Z20.828 Contact with and (suspected) exposure to other viral communicable diseases; J44.9 Chronic obstructive pulmonary disease, unspecified; M19.90 Unspecified osteoarthritis, unspecified site; Z79.890 Hormone replacement therapy; Z79.52 Long term (current) use of systemic steroids; Z85.43 Personal history of malignant neoplasm of ovary; Z90.710 Acquired absence of both cervix and uterus; Z79.01 Long term (current) use of anticoagulants; Z79.82 Long term (current) use of aspirin; Z79.899 Other long term (current) drug therapy; Z90.49 Acquired absence of other specified parts of digestive tract
CPT/HCPCS: 36415; 71045; 80053; 83605; 83880; 84484; 85025; 85610; 93005; 94640; J1940; J2930; U0002; 80048; 87040; 87077; 87186; 96374; 96375; 99285-25; A9270-GY; J0696; J2543; J7050; J7620-GY; J8610

== ENCOUNTER 2020-02-03 19:35 | Observation (INO) | payer MEDICARE, BC ==
--- NOTE | 2020-02-03 20:17 | CR ---
PROCEDURE INFORMATION: Exam: XR Chest, 1 View Exam date and time: 02/03/2020 8:09 PM Age: 84 years old Clinical indication: Shortness of breath; Additional info: SOB, HX chf TECHNIQUE: Imaging protocol: XR of the chest Views: 1 view. COMPARISON: CR Chest 1V Frontal 12/24/2019 8:43 PM FINDINGS: Lungs: Unremarkable. No consolidation. Pleural space: Unremarkable. No pleural effusion. No pneumothorax. Heart/Mediastinum: The heart demonstrates mild diffuse enlargement. Bones/joints: Unremarkable. IMPRESSION: No acute findings.
[2020-02-03] MEDS ORDERED: Furosemide 40 MG/4 ML VIAL IVPUSH ONE ×2 (20:18→22:18)
--- NOTE | 2020-02-03 20:22 | EDM.PDOC ---
ED HPI GENERAL MEDICAL PROBLEM - General Chief Complaint: Respiratory Problem Stated Complaint: SOB Time Seen by Provider: 02/03/20 20:00 Source of Information: Reports: Patient History Limitations: Reports: No Limitations - History of Present Illness INITIAL COMMENTS - FREE TEXT/NARRATIVE: ED with c/o SOB and increased swelling of lower legs. SOB with exertion, Denies with lying down. Denies chest pain. Hospitalized one month ago for same, states took 2 liters off. In clinic for recheck Wednesday weight 117, at home yesterday 122#. No fever or chills no cough. - Related Data Allergies Allergy/AdvReac Type Severity Reaction Status Date / Time No Known Allergies Allergy Verified 02/03/20 19:45 Home Meds: Home Meds Methotrexate Sodium [Methotrexate] 20 mg PO WEEKLY 11/04/14 [History] hydroCHLOROthiazide [Hydrochlorothiazide] 25 mg PO DAILY 11/04/14 [History] Acetaminophen [Tylenol] 650 mg PO BID 12/24/19 [History] Aspirin 81 mg PO DAILY 12/24/19 [History] Folic Acid 1,200 mcg PO DAILY 12/24/19 [History] Levothyroxine 25 mcg PO ACBREAKFAST 12/24/19 [History] Metoprolol Succinate [Toprol XL 100mg] 100 mg PO DAILY 12/24/19 [History] Warfarin [Coumadin] 0.5 mg PO ASDIRECTED 12/24/19 [History] atorvaSTATin [Lipitor] 20 mg PO BEDTIME 12/24/19 [History] lisinopriL [Lisinopril] 10 mg PO DAILY 12/24/19 [History] predniSONE [Prednisone] 5 mg PO BEDTIME 12/24/19 [History] Furosemide [Lasix] 40 mg PO DAILY #30 02/04/20 [Rx] Past Medical History HEENT History: Reports: Other (See Below) Other HEENT History: lasy eye. Always looking upward Cardiovascular History: Reports: Hypertension Respiratory History: Reports: COPD Other Gastrointestinal History: diarrhea with fruit consumption Genitourinary History: Reports: Urinary Incontinence Other Genitourinary History: urge incontinence [employer] History: Reports: Musculoskeletal History: Reports: Osteoarthritis, RA Neurological History: Reports: CVA Other Neuro History: 2017 Psychiatric History: Reports: None Endocrine/Metabolic History: Reports: Hypothyroidism Oncologic (Cancer) History: Reports: Ovarian - Infectious Disease History Infectious Disease History: Reports: Chicken Pox, Measles - Past Surgical History GI Surgical History: Reports: Appendectomy Female Surgical History: Reports: Hysterectomy Social & Family History - Family History Family Medical History: Noncontributory - Tobacco Use Smoking Status *Q: Never Smoker - Caffeine Use Caffeine Use: Reports: Coffee - Recreational Drug Use Recreational Drug Use: No - Living Situation & Occupation Living situation: Reports: , Alone Occupation: Retired ED ROS GENERAL - Review of Systems Review Of Systems: Comprehensive ROS is negative, except as noted in HPI. ED EXAM, GENERAL - Physical Exam Exam: See Below Exam Limited By: No Limitations General Appearance: Alert, Mild Distress (with exertion), Thin Eye Exam: Bilateral Eye: EOMI Ears: Normal External Exam, Hearing Loss Nose: Normal Inspection, Normal Mucosa Throat/Mouth: Normal Inspection, No Airway Compromise Head: Atraumatic, Normocephalic Neck: Normal Inspection Respiratory/Chest: Decreased Breath Sounds Cardiovascular: Irregularly Irregular. No: No Edema (3+ to knees) GI/Abdominal: Normal Bowel Sounds, Soft Back Exam: Normal Inspection Extremities: Pedal Edema, Other (arthritic deformities) Neurological: Alert, Oriented, Normal Cognition Psychiatric: Normal Affect Skin Exam: Warm, Dry, Intact Course - Vital Signs Last Recorded V/S: Last Vital Signs Temp 97.4 F 02/04/20 07:14 Pulse 75 02/04/20 09:34 Resp 18 02/04/20 07:14 BP 139/84 02/04/20 09:34 Pulse Ox 97 02/04/20 07:14 - Orders/Labs/Meds Labs: Laboratory Tests 02/03/20 02/03/20 02/03/20 Range/Units 20:02 20:02 20:02 WBC 6.8 (5.0-10.0) 10^3/uL RBC 4.78 (4.2-5.4) 10^6/uL Hgb 14.7 (12.0-16.0) g/dL Hct 45.3 (37.0-47.0) % MCV 94.8 D (80-100) fL MCH 30.8 (27.0-34.0) pg MCHC 32.5 L (33.0-35.0) g/dL Plt Count 149 L (150-450) 10^3/uL Neut % (Auto) 61.0 (42.2-75.2) % Lymph % (Auto) 30.4 (20.5-50.1) % Forrest % (Auto) 8.1 H (2-8) % Eos % (Auto) 0.4 L (1.0-3.0) % Baso % (Auto) 0.1 (0.0-1.0) % PT 33.5 H (9.0-12.0) SEC INR 3.6 H (0.9-1.2) Sodium 141 (136-145) mmol/L Potassium 3.6 (3.5-5.1) mmol/L Chloride 104 (98-107) mmol/L Carbon Dioxide 27 (21-32) mmol/L Anion Gap 13.6 H (7-13) mEq/L BUN 26 H (7-18) mg/dL Creatinine 1.31 H (0.55-1.02) mg/dL Est Cr Clr Drug Dosing 22.55 mL/min Estimated GFR (MDRD) 39 BUN/Creatinine Ratio 19.8 (No establ ref range) Glucose 140 H (74-99) mg/dL Calcium 9.4 (8.5-10.1) mg/dL Magnesium 1.7 L (1.8-2.4) mg/dL Total Bilirubin 0.9 (0.2-1.0) mg/dL AST 23 (15-37) U/L ALT 28 (14-59) U/L Alkaline Phosphatase 59 (46-116) U/L Troponin I < 0.017 (0.000-0.056) ng/mL B-Natriuretic Peptide 506 H (0-100) pg/ml Total Protein 7.0 (6.4-8.2) g/dL Albumin 3.6 (3.4-5.0) g/dL Globulin 3.4 Albumin/Globulin Ratio 1.1 Urine Color (YELLOW) Urine Appearance (CLEAR) Urine pH (5.0-9.0) Ur Specific Harrell[place] (1.005-1.030) Urine Protein (NEGATIVE) Urine Glucose (UA) (NEGATIVE) Urine Ketones (NEGATIVE) Urine Occult Blood (NEGATIVE) Urine Nitrite (NEGATIVE) Urine Bilirubin (NEGATIVE) Urine Urobilinogen (0.2-1.0) mg/dL Ur Leukocyte Esterase (NEGATIVE) Urine RBC /HPF Urine WBC (0-5/HPF) /HPF Ur Epithelial Cells (NOT SEEN) /HPF Amorphous Sediment (NOT SEEN) /HPF Urine Bacteria (0-FEW/HPF) /HPF Urine Mucus (NOT SEEN) /LPF 02/03/20 Range/Units 20:58 WBC (5.0-10.0) 10^3/uL RBC (4.2-5.4) 10^6/uL Hgb (12.0-16.0) g/dL Hct (37.0-47.0) % MCV (80-100) fL MCH (27.0-34.0) pg MCHC (33.0-35.0) g/dL Plt Count (150-450) 10^3/uL Neut % (Auto) (42.2-75.2) % Lymph % (Auto) (20.5-50.1) % Forrest % (Auto) (2-8) % Eos % (Auto) (1.0-3.0) % Baso % (Auto) (0.0-1.0) % PT (9.0-12.0) SEC INR (0.9-1.2) Sodium (136-145) mmol/L Potassium (3.5-5.1) mmol/L Chloride (98-107) mmol/L Carbon Dioxide (21-32) mmol/L Anion Gap (7-13) mEq/L BUN (7-18) mg/dL Creatinine (0.55-1.02) mg/dL Est Cr Clr Drug Dosing mL/min Estimated GFR (MDRD) BUN/Creatinine Ratio (No establ ref range) Glucose (74-99) mg/dL Calcium (8.5-10.1) mg/dL Magnesium (1.8-2.4) mg/dL Total Bilirubin (0.2-1.0) mg/dL AST (15-37) U/L ALT (14-59) U/L Alkaline Phosphatase (46-116) U/L Troponin I (0.000-0.056) ng/mL B-Natriuretic Peptide (0-100) pg/ml Total Protein (6.4-8.2) g/dL Albumin (3.4-5.0) g/dL Globulin Albumin/Globulin Ratio Urine Color Yellow (YELLOW) Urine Appearance Clear (CLEAR) Urine pH 5.5 (5.0-9.0) Ur Specific [place] 1.015 (1.005-1.030) Urine Protein Negative (NEGATIVE) Urine Glucose (UA) Negative (NEGATIVE) Urine Ketones Negative (NEGATIVE) Urine Occult Blood Trace-intact H (NEGATIVE) Urine Nitrite Negative (NEGATIVE) Urine Bilirubin Negative (NEGATIVE) Urine Urobilinogen 0.2 (0.2-1.0) mg/dL Ur Leukocyte Esterase Negative (NEGATIVE) Urine RBC 0-5 /HPF Urine WBC 0-5 (0-5/HPF) /HPF Ur Epithelial Cells Few (NOT SEEN) /HPF Amorphous Sediment Few (NOT SEEN) /HPF Urine Bacteria Few (0-FEW/HPF) /HPF Urine Mucus Rare (NOT SEEN) /LPF Meds: Medications Discontinued Medications Generic Name Dose Route Start Last Admin Trade Name Freq PRN Reason Stop Dose Admin Acetaminophen 650 mg 02/03/20 22:38 Tylenol PO Q4H PRN Pain (mild 1-3 )/fever Acetaminophen 650 mg 02/04/20 09:00 02/04/20 09:35 Tylenol PO 650 mg BID [place] Administration Aspirin 81 mg 02/04/20 09:00 02/04/20 09:34 Aspirin PO 81 mg DAILY [place] Administration Atorvastatin Calcium 20 mg 02/04/20 21:00 Lipitor PO BEDTIME [place] Docusate Sodium 100 mg 02/03/20 22:38 Colace PO DAILY PRN Constipation Folic Acid 1 mg 02/04/20 09:00 02/04/20 09:33 Folic Acid PO 1 mg DAILY [place] Administration Furosemide 40 mg 02/03/20 20:18 02/03/20 20:24 Lasix IVPUSH 02/03/20 20:19 40 mg NOW ONE Administration Furosemide 60 mg 02/03/20 22:18 02/03/20 22:54 Lasix IVPUSH 02/03/20 22:19 60 mg NOW ONE Administration Furosemide 40 mg 02/04/20 07:00 02/04/20 09:37 Lasix IVPUSH Not Given DAILY [place] Hydrochlorothiazide 25 mg 02/04/20 09:00 02/04/20 09:33 Hydrochlorothiazide PO 25 mg DAILY [place] Administration Levothyroxine Sodium 25 mcg 02/04/20 06:00 02/04/20 05:32 Levothyroxine PO 25 mcg ACBREAKFAST [place] Administration Methotrexate 20 mg 02/05/20 09:00 Methotrexate PO Q7D [facility] Metoprolol Succinate 100 mg 02/04/20 09:00 02/04/20 09:34 Toprol Xl PO 100 mg DAILY [facility] Administration Non-Formulary Medication 0.5 mg 02/04/20 14:00 Warfarin PO DAILY@1400 [facility] Potassium Chloride 40 meq 02/03/20 23:44 02/04/20 00:02 Klor-Con 10 PO 02/03/20 23:45 40 meq ONETIME ONE Administration Prednisone 5 mg 02/04/20 21:00 Prednisone PO BEDTIME [facility] Warfarin Sodium 1 dose 02/03/20 23:00 Pharmacy To Dose - Warfarin .XX ASDIRECTED [facility] - Re-Assessments/Exams Free Text/Narrative Re-Assessment/Exam: 02/03/20 21:43 Dr Ramirez here to see patient, did not deem appropriate for admission as BNP only 506 initial recommendation home and increase lasix BID dosing to 40mg. 02/03/20 21:56 Departure - Departure Time of Disposition: 22:00 Disposition: Refer to Observation Condition: Good Clinical Impression: Exertional dyspnea, Chronic a-fib CHF exacerbation Qualifiers: Heart failure type: unspecified Qualified Code(s): I50.9 - Heart failure, unspecified Edema Qualifiers: Edema type: unspecified Qualified Code(s): R60.9 - Edema, unspecified - Discharge Information Sepsis Event Note (ED) - Evaluation Sepsis Screening Result: No Definite Risk
[2020-02-03 20:33] LABS: ANION GAP 13.6 mEq/L (7-13); CHLORIDE,CL 104 mmol/L (98-107); SODIUM,NA 141 mmol/L (136-145)
--- NOTE | 2020-02-03 22:25 | PCM.HP ---
H&P History of Present Illness - General Date of Service: 02/03/20 Admit Problem/Dx: Admission Diagnosis/Problem Admission Diagnosis/Problem Congestive heart failure Source of Information: Patient, EMS Notes Reviewed, Old Records - History of Present Illness Initial Comments - Free Text/Narative: This is a 84 y?o F with past medical history of RA, Ovarian cancer, Hypertension, Chronic A-Fib, CHF came to ED with weight gain, her base line weight 117 lbs and she has some shortness of breath admitted to hospital for observation and diuresis. CXR showed increased vascular marking, No pleural effusion. Onset of Symptoms: Reports: Gradual Duration of Symptoms: Reports: Day(s): Context: Reports: Exertion - Related Data Allergies/Adverse Reactions: Allergies Allergy/AdvReac Type Severity Reaction Status Date / Time No Known Allergies Allergy Verified 02/03/20 19:45 Home Medications: Home Meds Methotrexate Sodium [Methotrexate] 20 mg PO WEEKLY 11/04/14 [History] hydroCHLOROthiazide [Hydrochlorothiazide] 25 mg PO DAILY 11/04/14 [History] Acetaminophen [Tylenol] 650 mg PO BID 12/24/19 [History] Aspirin 81 mg PO DAILY 12/24/19 [History] Folic Acid 1,200 mcg PO DAILY 12/24/19 [History] Levothyroxine 25 mcg PO ACBREAKFAST 12/24/19 [History] Metoprolol Succinate [Toprol XL 100mg] 100 mg PO DAILY 12/24/19 [History] Warfarin [Coumadin] 0.5 mg PO ASDIRECTED 12/24/19 [History] atorvaSTATin [Lipitor] 20 mg PO BEDTIME 12/24/19 [History] lisinopriL [Lisinopril] 10 mg PO DAILY 12/24/19 [History] predniSONE [Prednisone] 5 mg PO BEDTIME 12/24/19 [History] Furosemide [Lasix] 20 mg PO DAILY 12/25/19 [History] Past Medical History HEENT History: Reports: Other (See Below) Other HEENT History: lasy eye. Always looking upward Cardiovascular History: Reports: Hypertension Respiratory History: Reports: COPD Other Gastrointestinal History: diarrhea with fruit consumption Genitourinary History: Reports: Urinary Incontinence Other Genitourinary History: urge incontinence [employer]ER History: Reports: Musculoskeletal History: Reports: Osteoarthritis, RA Neurological History: Reports: CVA Other Neuro History: 2017 Psychiatric History: Reports: None Endocrine/Metabolic History: Reports: Hypothyroidism Oncologic (Cancer) History: Reports: Ovarian - Infectious Disease History Infectious Disease History: Reports: Chicken Pox, Measles - Past Surgical History GI Surgical History: Reports: Appendectomy Female Surgical History: Reports: Hysterectomy Social & Family History - Family History Family Medical History: Noncontributory - Tobacco Use Smoking Status *Q: Never Smoker - Caffeine Use Caffeine Use: Reports: Coffee - Recreational Drug Use Recreational Drug Use: No - Living Situation & Occupation Living situation: Reports: , Alone Occupation: Retired H&P Review of Systems - Review of Systems: Review Of Systems: See Below General: Reports: Weakness, Weight Gain. Denies: Fever, Chills HEENT: Denies: Headaches, Sinus Congestion, Sore Throat, Vertigo, Visual Changes Pulmonary: Reports: Shortness of Breath. Denies: Wheezing, Pleuritic Chest Pain, Cough Cardiovascular: Reports: Edema. Denies: Chest Pain, Lightheadedness Gastrointestinal: Denies: Abdominal Pain, Constipation, Distension, Vomiting Genitourinary: Denies: Dysuria, Burning, Urgency, Flank Pain Musculoskeletal: Denies: Neck Pain, Leg Pain, Joint Swelling Skin: Denies: Cyanosis, Jaundice, Bruising, Pruritis, Rash Psychiatric: Denies: Confusion, Anxiety, Agitation Neurological: Denies: Confusion, Tingling, Tremors Hematologic/Lymphatic: Reports: No Symptoms Immunologic: Reports: No Symptoms Exam - Exam Exam: See Below - Vital Signs Vital Signs: Last Vital Signs Temp 36.0 C L 02/03/20 19:46 Pulse 60 02/03/20 19:46 Resp 16 02/03/20 19:46 BP 122/98 H 02/03/20 19:46 Pulse Ox 96 02/03/20 19:46 Weight: 52.617 kg - Exam Quality Assessment: DVT Prophylaxis. No: Supplemental Oxygen, Urinary Catheter General: Alert, Oriented, Cooperative HEENT: Conjunctiva Clear, EOMI, Mucosa Moist & Kemp Neck: Supple. No: JVD, Thyromegaly Lungs: Clear to Auscultation, Normal Respiratory Effort, Crackles Cardiovascular: Irregular Rhythm, Systolic Murmur GI/Abdominal Exam: Normal Bowel Sounds, Non-Tender, No Distention (Female) Exam: Deferred Rectal (Female) Exam: Deferred Back Exam: Normal Inspection Extremities: Normal Inspection, Pedal Edema Skin: Warm, Dry, Intact Neurological: Cranial Nerves Intact Neuro Extensive - Mental Status: Alert, Oriented x3, Normal Mood/Affect, Normal Cognition, Memory Intact, Disorientation to Person Neuro Extensive - Motor, Sensory, Reflexes: CN II-XII Intact, Normal Gait, Normal Reflexes Psychiatric: Alert, Normal Affect, Normal Mood - Patient Data Lab Results Last 24 hrs: Laboratory Results - last 24 hr 02/03/20 02/03/20 02/03/20 Range/Units 20:02 20:02 20:02 WBC 6.8 (5.0-10.0) 10^3/uL RBC 4.78 (4.2-5.4) 10^6/uL Hgb 14.7 (12.0-16.0) g/dL Hct 45.3 (37.0-47.0) % MCV 94.8 D (80-100) fL MCH 30.8 (27.0-34.0) pg MCHC 32.5 L (33.0-35.0) g/dL Plt Count 149 L (150-450) 10^3/uL Neut % (Auto) 61.0 (42.2-75.2) % Lymph % (Auto) 30.4 (20.5-50.1) % [place] % (Auto) 8.1 H (2-8) % Eos % (Auto) 0.4 L (1.0-3.0) % Baso % (Auto) 0.1 (0.0-1.0) % PT 33.5 H (9.0-12.0) SEC INR 3.6 H (0.9-1.2) Sodium 141 (136-145) mmol/L Potassium 3.6 (3.5-5.1) mmol/L Chloride 104 (98-107) mmol/L Carbon Dioxide 27 (21-32) mmol/L Anion Gap 13.6 H (7-13) mEq/L BUN 26 H (7-18) mg/dL Creatinine 1.31 H (0.55-1.02) mg/dL Est Cr Clr Drug Dosing 22.55 mL/min Estimated GFR (MDRD) 39 BUN/Creatinine Ratio 19.8 (No establ ref range) Glucose 140 H (74-99) mg/dL Calcium 9.4 (8.5-10.1) mg/dL Magnesium 1.7 L (1.8-2.4) mg/dL Total Bilirubin 0.9 (0.2-1.0) mg/dL AST 23 (15-37) U/L ALT 28 (14-59) U/L Alkaline Phosphatase 59 (46-116) U/L Troponin I < 0.017 (0.000-0.056) ng/mL B-Natriuretic Peptide 506 H (0-100) pg/ml Total Protein 7.0 (6.4-8.2) g/dL Albumin 3.6 (3.4-5.0) g/dL Globulin 3.4 Albumin/Globulin Ratio 1.1 Urine Color (YELLOW) Urine Appearance (CLEAR) Urine pH (5.0-9.0) Ur Specific [place] (1.005-1.030) Urine Protein (NEGATIVE) Urine Glucose (UA) (NEGATIVE) Urine Ketones (NEGATIVE) Urine Occult Blood (NEGATIVE) Urine Nitrite (NEGATIVE) Urine Bilirubin (NEGATIVE) Urine Urobilinogen (0.2-1.0) mg/dL Ur Leukocyte Esterase (NEGATIVE) Urine RBC /HPF Urine WBC (0-5/HPF) /HPF Ur Epithelial Cells (NOT SEEN) /HPF Amorphous Sediment (NOT SEEN) /HPF Urine Bacteria (0-FEW/HPF) /HPF Urine Mucus (NOT SEEN) /LPF 02/03/20 Range/Units 20:58 WBC (5.0-10.0) 10^3/uL RBC (4.2-5.4) 10^6/uL Hgb (12.0-16.0) g/dL Hct (37.0-47.0) % MCV (80-100) fL MCH (27.0-34.0) pg MCHC (33.0-35.0) g/dL Plt Count (150-450) 10^3/uL Neut % (Auto) (42.2-75.2) % Lymph % (Auto) (20.5-50.1) % [place] % (Auto) (2-8) % Eos % (Auto) (1.0-3.0) % Baso % (Auto) (0.0-1.0) % PT (9.0-12.0) SEC INR (0.9-1.2) Sodium (136-145) mmol/L Potassium (3.5-5.1) mmol/L Chloride (98-107) mmol/L Carbon Dioxide (21-32) mmol/L Anion Gap (7-13) mEq/L BUN (7-18) mg/dL Creatinine (0.55-1.02) mg/dL Est Cr Clr Drug Dosing mL/min Estimated GFR (MDRD) BUN/Creatinine Ratio (No establ ref range) Glucose (74-99) mg/dL Calcium (8.5-10.1) mg/dL Magnesium (1.8-2.4) mg/dL Total Bilirubin (0.2-1.0) mg/dL AST (15-37) U/L ALT (14-59) U/L Alkaline Phosphatase (46-116) U/L Troponin I (0.000-0.056) ng/mL B-Natriuretic Peptide (0-100) pg/ml Total Protein (6.4-8.2) g/dL Albumin (3.4-5.0) g/dL Globulin Albumin/Globulin Ratio Urine Color Yellow (YELLOW) Urine Appearance Clear (CLEAR) Urine pH 5.5 (5.0-9.0) Ur Specific [place] 1.015 (1.005-1.030) Urine Protein Negative (NEGATIVE) Urine Glucose (UA) Negative (NEGATIVE) Urine Ketones Negative (NEGATIVE) Urine Occult Blood Trace-intact H (NEGATIVE) Urine Nitrite Negative (NEGATIVE) Urine Bilirubin Negative (NEGATIVE) Urine Urobilinogen 0.2 (0.2-1.0) mg/dL Ur Leukocyte Esterase Negative (NEGATIVE) Urine RBC 0-5 /HPF Urine WBC 0-5 (0-5/HPF) /HPF Ur Epithelial Cells Few (NOT SEEN) /HPF Amorphous Sediment Few (NOT SEEN) /HPF Urine Bacteria Few (0-FEW/HPF) /HPF Urine Mucus Rare (NOT SEEN) /LPF Result Diagrams: 02/03/20 20:02 02/03/20 20:02 - Problem List (1) CHF exacerbation SNOMED Code(s): 507890698, 80876318801837 ICD Code: I50.9 - HEART FAILURE, UNSPECIFIED Status: Acute Current Visit: Yes (2) Chronic a-fib SNOMED Code(s): 953900976 ICD Code: I48.20 - CHRONIC ATRIAL FIBRILLATION, UNSPECIFIED Status: Acute Current Visit: No (3) Elevated brain natriuretic peptide (BNP) level SNOMED Code(s): 969438160, 894642466 ICD Code: R79.89 - OTHER SPECIFIED ABNORMAL FINDINGS OF BLOOD CHEMISTRY Status: Acute Current Visit: No (4) Pulmonary edema SNOMED Code(s): 13886497 ICD Code: J81.1 - CHRONIC PULMONARY EDEMA Status: Acute Current Visit: No Qualifiers: Chronicity: acute Qualified Code(s): J81.0 - Acute pulmonary edema Problem List Initiated/Reviewed/Updated: Yes Orders Last 24hrs: Active Orders 24 hr Category Date Time Status Admission Diagnosis [ADT] Stat ADT 02/03/20 21:58 Ordered Admission Status [Patient Status] [ADT] Routine ADT 02/03/20 21:58 Active Cardiac Monitoring [RC] . DIRECTED Care 02/03/20 21:58 Active EKG Documentation Completion [RC] URGENT Care 02/03/20 19:54 Active Furosemide [Lasix] Med 02/03/20 22:18 Once 60 mg IVPUSH NOW ONE Medication Orders Furosemide (Lasix) 60 mg IVPUSH NOW ONE Stop: 02/03/20 22:19 Assessment/Plan Comment:: This is a 84 Y/O F with past history of RA followed by Dr. Pollock, Hyper tension, CHF, Chronic A-Fib presented to ER with weight gain and pt had similar admission in the past with weight gain Impression and plan 1. CHF exacerbation: CXR showed increased lung markings and also has elevated BNP -Will give lasix 60 mg IV X 1 dose now -Will give lasix 40 mg IV X 1 dose in AM -Continue Strict I/O recording -Daily weight -BMP in AM 2. Edema of Extremities: This is also cardiogenic -Advise to avoid foods with high salt -Will go home on lasix 40 mg PO daily [ was at 20 mg daily] -Follow with PMD 3. Hypertension: Her BP acceptable and she is on lisinopril 10 mg daily and Metoprolol at 100 mg daily 4. Chronic A-Fib: Rate is controlled and on coumadin 5. Rheumatoid arthritis: Continue Methotrexate 20 mg PO weekly 6. Dyslipidemia: Continue Lipitor at 20 mg daily 7. Hypothyroidism: Continue Levothyroxin DVT prophylaxis: On Coumadin Code status: DNR/DNI
[2020-02-03] MEDS ORDERED: Docusate Sodium 100 MG Cap PO PRN (22:38)
[2020-02-03] MEDS ORDERED: Acetaminophen 325 MG Tab PO PRN (22:38)
[2020-02-03] MEDS ORDERED: Potassium Chloride 10 MEQ Tab.ER PO ONE (23:44)
[2020-02-04] MEDS ORDERED: Levothyroxine 25 MCG Tab PO SCH (06:00)
[2020-02-04 06:55] LABS: ANION GAP 11.5 mEq/L (7-13)
[2020-02-04] MEDS: Furosemide 40 MG/4 ML VIAL IVPUSH SCH ×2 (06:58→09:37)
[2020-02-04 07:15] VITALS: BP 139/84; PULSE 75
[2020-02-04] MEDS ORDERED: Aspirin 81 MG Tab.Chew PO SCH (09:00)
[2020-02-04] MEDS ORDERED: Hydrochlorothiazide 25 MG Tab PO SCH (09:00)
[2020-02-04] MEDS ORDERED: Folic Acid 1 MG Tab PO SCH (09:00)
[2020-02-04] MEDS ORDERED: Metoprolol Succinate 50 MG Tab.ER PO SCH (09:00)
[2020-02-04] MEDS ORDERED: Acetaminophen 325 MG Tab PO SCH (09:00)
--- NOTE | 2020-02-04 09:51 | PCM.DCSUM1 ---
Discharge Summary - Hospital Course Free Text/Narrative:: This is a 84 y/o F with past medical history of RA, Ovarian cancer, Hypertension, Chronic A-Fib, CHF came to ED with weight gain, her base line weight 117 lbs and she has some shortness of breath admitted to hospital for observation and diuresis. CXR showed increased vascular marking, No pleural effusion. she was admitted and diuresed with lasix and responded well. she will be going home today and will follow with PMD in this week ( week of 02/05/20) Diagnosis: Stroke: No - Discharge Data Discharge Date: 02/04/20 Discharge Disposition: Home, Self-Care 01 Condition: Good - Referral to Home Health Primary Care Physician: Jodi Gill NP - Discharge Diagnosis/Problem(s) (1) CHF exacerbation SNOMED Code(s): 193309155, 59621184388978 ICD Code: I50.9 - HEART FAILURE, UNSPECIFIED Status: Acute Current Visit: Yes (2) Chronic a-fib SNOMED Code(s): 308017727 ICD Code: I48.20 - CHRONIC ATRIAL FIBRILLATION, UNSPECIFIED Status: Acute Current Visit: No (3) Elevated brain natriuretic peptide (BNP) level SNOMED Code(s): 094050646, 524131539 ICD Code: R79.89 - OTHER SPECIFIED ABNORMAL FINDINGS OF BLOOD CHEMISTRY Status: Acute Current Visit: No (4) Pulmonary edema SNOMED Code(s): 07445447 ICD Code: J81.1 - CHRONIC PULMONARY EDEMA Status: Acute Current Visit: No Qualifiers: Chronicity: acute Qualified Code(s): J81.0 - Acute pulmonary edema - Patient Instructions Diet: Heart Healthy Diet, Low Sodium Activity: As Tolerated Driving: Do Not Drive Showering/Bathing: November Shower - Discharge Plan Prescriptions/Med Rec: Furosemide [Lasix] 40 mg PO DAILY #30 Home Medications: Home Meds Methotrexate Sodium [Methotrexate] 20 mg PO WEEKLY 11/04/14 [History] hydroCHLOROthiazide [Hydrochlorothiazide] 25 mg PO DAILY 11/04/14 [History] Acetaminophen [Tylenol] 650 mg PO BID 12/24/19 [History] Aspirin 81 mg PO DAILY 12/24/19 [History] Folic Acid 1,200 mcg PO DAILY 12/24/19 [History] Levothyroxine 25 mcg PO ACBREAKFAST 12/24/19 [History] Metoprolol Succinate [Toprol XL 100mg] 100 mg PO DAILY 12/24/19 [History] Warfarin [Coumadin] 0.5 mg PO ASDIRECTED 12/24/19 [History] atorvaSTATin [Lipitor] 20 mg PO BEDTIME 12/24/19 [History] lisinopriL [Lisinopril] 10 mg PO DAILY 12/24/19 [History] predniSONE [Prednisone] 5 mg PO BEDTIME 12/24/19 [History] Furosemide [Lasix] 40 mg PO DAILY #30 02/04/20 [Rx] Oxygen Therapy Mode: Room Air Patient Handouts: Furosemide tablets, Heart Failure, Self Care, [id number] Referrals: Jodi Gill MEDIA ACCOUNT EXECUTIVE [Primary Care Provider] - - Discharge Summary/Plan Comment DC Time >30 min.: Yes Discharge Summary/Plan Comment: This is a 84 Y/O F with past history of RA followed by Dr. Pollock, Hypertension, CHF, Chronic A-Fib presented to ER with weight gain and pt had similar admission in the past with weight gain Impression and plan 1. CHF exacerbation: CXR showed increased lung markings and also has elevated BNP -Will go home on lasix 40 mg PO daily -Check weight Daily -Follow with PMD in this week ( week of 02/05/20) 2. Edema of Extremities: -Advise to avoid foods with high salt -Will go home on lasix 40 mg PO daily [ was at 20 mg BID] -Follow with PMD 3. Hypertension: Her BP acceptable and will continue lisinopril at 10 mg daily and Metoprolol at 100 mg daily 4. Chronic A-Fib: Rate is controlled and on coumadin 5. Rheumatoid arthritis: Continue Methotrexate 20 mg PO weekly 6. Dyslipidemia: Continue Lipitor at 20 mg daily 7. Hypothyroidism: Continue Levothyroxin - General Info Date of Service: 02/04/20 Admission Dx/Problem (Free Text: Admission Diagnosis/Problem Admission Diagnosis/Problem Congestive heart failure Subjective Update: Today she was seen in room doing well, No increased shortness of breath, appetite is good, No nausea or Vomiting. No fever or Chill Functional Status: Reports: Pain Controlled. Denies: Tolerating Diet, Ambulating, Urinating - Review of Systems General: Denies: Fever, Chills, Appetite HEENT: Denies: Headaches, Sinus Congestion, Visual Changes Pulmonary: Denies: Shortness of Breath, Cough, Sputum, Wheezing Cardiovascular: Denies: Chest Pain, Dyspnea on Exertion, Edema Gastrointestinal: Denies: Abdominal Pain, Nausea, Vomiting Genitourinary: Denies: Dysuria, Frequency, Burning, Urgency Musculoskeletal: Denies: Neck Pain, Leg Pain, Foot Pain Skin: Denies: Cyanosis, Jaundice, Bruising, Pruritis, Rash Neurological: Denies: Confusion, Dizziness, Tingling, Tremors Psychiatric: Denies: Confusion, Anxiety, Agitation - Patient Data Vitals - Most Recent: Last Vital Signs Temp 36.3 C 02/04/20 07:14 Pulse 75 02/04/20 09:34 Resp 18 02/04/20 07:14 BP 139/84 02/04/20 09:34 Pulse Ox 97 02/04/20 07:14 Weight - Most Recent: 52.617 kg I&O - Last 24 hours: Intake & Output 02/03/20 02/04/20 02/04/20 22:59 06:59 14:59 Intake Total 290 120 Output Total 300 1100 700 Balance -300 -810 -580 Lab Results - Last 24 hrs: Laboratory Results - last 24 hr 02/03/20 02/03/20 02/03/20 Range/Units 20:02 20:02 20:02 WBC 6.8 (5.0-10.0) 10^3/uL RBC 4.78 (4.2-5.4) 10^6/uL Hgb 14.7 (12.0-16.0) g/dL Hct 45.3 (37.0-47.0) % MCV 94.8 D (80-100) fL MCH 30.8 (27.0-34.0) pg MCHC 32.5 L (33.0-35.0) g/dL Plt Count 149 L (150-450) 10^3/uL Neut % (Auto) 61.0 (42.2-75.2) % Lymph % (Auto) 30.4 (20.5-50.1) % [place] % (Auto) 8.1 H (2-8) % Eos % (Auto) 0.4 L (1.0-3.0) % Baso % (Auto) 0.1 (0.0-1.0) % PT 33.5 H (9.0-12.0) SEC INR 3.6 H (0.9-1.2) Sodium 141 (136-145) mmol/L Potassium 3.6 (3.5-5.1) mmol/L Chloride 104 (98-107) mmol/L Carbon Dioxide 27 (21-32) mmol/L Anion Gap 13.6 H (7-13) mEq/L BUN 26 H (7-18) mg/dL Creatinine 1.31 H (0.55-1.02) mg/dL Est Cr Clr Drug Dosing 22.55 mL/min Estimated GFR (MDRD) 39 BUN/Creatinine Ratio 19.8 (No establ ref range) Glucose 140 H (74-99) mg/dL Calcium 9.4 (8.5-10.1) mg/dL Magnesium 1.7 L (1.8-2.4) mg/dL Total Bilirubin 0.9 (0.2-1.0) mg/dL AST 23 (15-37) U/L ALT 28 (14-59) U/L Alkaline Phosphatase 59 (46-116) U/L Troponin I < 0.017 (0.000-0.056) ng/mL B-Natriuretic Peptide 506 H (0-100) pg/ml Total Protein 7.0 (6.4-8.2) g/dL Albumin 3.6 (3.4-5.0) g/dL Globulin 3.4 Albumin/Globulin Ratio 1.1 Urine Color (YELLOW) Urine Appearance (CLEAR) Urine pH (5.0-9.0) Ur Specific [place] (1.005-1.030) Urine Protein (NEGATIVE) Urine Glucose (UA) (NEGATIVE) Urine Ketones (NEGATIVE) Urine Occult Blood (NEGATIVE) Urine Nitrite (NEGATIVE) Urine Bilirubin (NEGATIVE) Urine Urobilinogen (0.2-1.0) mg/dL Ur Leukocyte Esterase (NEGATIVE) Urine RBC /HPF Urine WBC (0-5/HPF) /HPF Ur Epithelial Cells (NOT SEEN) /HPF Amorphous Sediment (NOT SEEN) /HPF Urine Bacteria (0-FEW/HPF) /HPF Urine Mucus (NOT SEEN) /LPF 02/03/20 02/04/20 02/04/20 Range/Units 20:58 06:10 06:10 WBC (5.0-10.0) 10^3/uL RBC (4.2-5.4) 10^6/uL Hgb (12.0-16.0) g/dL Hct (37.0-47.0) % MCV (80-100) fL MCH (27.0-34.0) pg MCHC (33.0-35.0) g/dL Plt Count (150-450) 10^3/uL Neut % (Auto) (42.2-75.2) % Lymph % (Auto) (20.5-50.1) % [place] % (Auto) (2-8) % Eos % (Auto) (1.0-3.0) % Baso % (Auto) (0.0-1.0) % PT 31.0 H (9.0-12.0) SEC INR 3.3 H (0.9-1.2) Sodium 142 (136-145) mmol/L Potassium 3.5 (3.5-5.1) mmol/L Chloride 104 (98-107) mmol/L Carbon Dioxide 30 (21-32) mmol/L Anion Gap 11.5 (7-13) mEq/L BUN 21 H (7-18) mg/dL Creatinine 1.24 H (0.55-1.02) mg/dL Est Cr Clr Drug Dosing 23.82 mL/min Estimated GFR (MDRD) 41 BUN/Creatinine Ratio (No establ ref range) Glucose 114 H (74-99) mg/dL Calcium 9.4 (8.5-10.1) mg/dL Magnesium (1.8-2.4) mg/dL Total Bilirubin (0.2-1.0) mg/dL AST (15-37) U/L ALT (14-59) U/L Alkaline Phosphatase (46-116) U/L Troponin I (0.000-0.056) ng/mL B-Natriuretic Peptide (0-100) pg/ml Total Protein (6.4-8.2) g/dL Albumin (3.4-5.0) g/dL Globulin Albumin/Globulin Ratio Urine Color Yellow (YELLOW) Urine Appearance Clear (CLEAR) Urine pH 5.5 (5.0-9.0) Ur Specific [place] 1.015 (1.005-1.030) Urine Protein Negative (NEGATIVE) Urine Glucose (UA) Negative (NEGATIVE) Urine Ketones Negative (NEGATIVE) Urine Occult Blood Trace-intact H (NEGATIVE) Urine Nitrite Negative (NEGATIVE) Urine Bilirubin Negative (NEGATIVE) Urine Urobilinogen 0.2 (0.2-1.0) mg/dL Ur Leukocyte Esterase Negative (NEGATIVE) Urine RBC 0-5 /HPF Urine WBC 0-5 (0-5/HPF) /HPF Ur Epithelial Cells Few (NOT SEEN) /HPF Amorphous Sediment Few (NOT SEEN) /HPF Urine Bacteria Few (0-FEW/HPF) /HPF Urine Mucus Rare (NOT SEEN) /LPF Med Orders - Current: Current Medications Acetaminophen (Tylenol) 650 mg PO Q4H PRN PRN Reason: Pain (mild 1-3 )/fever Acetaminophen (Tylenol) 650 mg PO BID COUNT INCLUDES THE [facility] Last Admin: 02/04/20 09:35 Dose: 650 mg Documented by: Aspirin (Aspirin) 81 mg PO DAILY COUNT INCLUDES THE [facility] Last Admin: 02/04/20 09:34 Dose: 81 mg Documented by: Atorvastatin Calcium (Lipitor) 20 mg PO BEDTIME COUNT INCLUDES THE [facility] Docusate Sodium (Colace) 100 mg PO DAILY PRN PRN Reason: Constipation Folic Acid (Folic Acid) 1 mg PO DAILY COUNT INCLUDES THE [facility] Last Admin: 02/04/20 09:33 Dose: 1 mg Documented by: Furosemide (Lasix) 40 mg IVPUSH DAILY COUNT INCLUDES THE [facility] Last Admin: 02/04/20 09:37 Dose: Not Given Documented by: Hydrochlorothiazide (Hydrochlorothiazide) 25 mg PO DAILY COUNT INCLUDES THE [facility] Last Admin: 02/04/20 09:33 Dose: 25 mg Documented by: Levothyroxine Sodium (Levothyroxine) 25 mcg PO ACBREAKFAST COUNT INCLUDES THE [facility] Last Admin: 02/04/20 05:32 Dose: 25 mcg Documented by: Methotrexate (Methotrexate) 20 mg PO Q7D COUNT INCLUDES THE [facility] Metoprolol Succinate (Toprol Xl) 100 mg PO DAILY COUNT INCLUDES THE [facility] Last Admin: 02/04/20 09:34 Dose: 100 mg Documented by: Non-Formulary Medication (Warfarin) 0.5 mg PO DAILY@1400 COUNT INCLUDES THE [facility] Prednisone (Prednisone) 5 mg PO BEDTIME COUNT INCLUDES THE [facility] Warfarin Sodium (Pharmacy To Dose - Warfarin) 1 dose .XX ASDIRECTED COUNT INCLUDES THE [facility] Discontinued Medications Furosemide (Lasix) 40 mg IVPUSH NOW ONE Stop: 02/03/20 20:19 Last Admin: 02/03/20 20:24 Dose: 40 mg Documented by: Furosemide (Lasix) 60 mg IVPUSH NOW ONE Stop: 02/03/20 22:19 Last Admin: 02/03/20 22:54 Dose: 60 mg Documented by: Potassium Chloride (Klor-Con 10) 40 meq PO ONETIME ONE Stop: 02/03/20 23:45 Last Admin: 02/04/20 00:02 Dose: 40 meq Documented by: - Exam Quality Assessment: Reports: DVT Prophylaxis. Denies: Supplemental Oxygen, Urine Catheter General: Reports: Alert, Oriented, Cooperative, No Acute Distress HEENT: Reports: Pupils Equal, Pupils Reactive, EOMI, Mucous Membr. Moist/[place] Neck: Reports: No JVD, No Thyromegaly. Denies: Lymphadenopathy Lungs: Reports: Clear to Auscultation, Normal Respiratory Effort. Denies: Crackles, Wheezing Cardiovascular: Reports: Regular Rate, Regular Rhythm, Murmurs GI/Abdominal Exam: Normal Bowel Sounds, No Distention. No: Rigid, Rebound, Tender (Female) Exam: Deferred Rectal (Female) Exam: Deferred Back Exam: Reports: Normal Inspection, Full Range of Motion Extremities: Normal Inspection, Pedal Edema (trace) Skin: Reports: Warm, Dry, Intact Neurological: Reports: No New Focal Deficit, Normal Gait Psy/Mental Status: Reports: Alert, Normal Affect, Normal Mood
[2020-02-04] MEDS ORDERED: Non-Formulary Medication 1 Each (Warfarin 0.5 MG) PO SCH (14:00)
[2020-02-04] MEDS ORDERED: atorvaSTATin 20 MG Tab PO SCH (21:00)
[2020-02-04] MEDS ORDERED: predniSONE 5 MG Tab PO SCH (21:00)
[2020-02-05] MEDS ORDERED: Methotrexate 2.5 MG Tab PO SCH (09:00)
== END 2020-02-04 13:40 | disposition home or self-care (01) ==
LOC: DL.ED 19:35 → DL.MS 21:58 → UNDOADMOB 22:02 → DL.MS 22:02
PROVIDERS: ADMIT Internal Medicine Nephrology; ATTEND Internal Medicine Nephrology
DX: I11.0 Hypertensive heart disease with heart failure (principal); I50.1 Left ventricular failure, unspecified; I48.20 Chronic atrial fibrillation, unspecified; M06.9 Rheumatoid arthritis, unspecified; R79.89 Other specified abnormal findings of blood chemistry; E78.5 Hyperlipidemia, unspecified; E03.9 Hypothyroidism, unspecified; J44.9 Chronic obstructive pulmonary disease, unspecified; M19.90 Unspecified osteoarthritis, unspecified site; Z85.43 Personal history of malignant neoplasm of ovary; Z79.899 Other long term (current) drug therapy; Z79.82 Long term (current) use of aspirin; Z79.01 Long term (current) use of anticoagulants; Z86.73 Personal history of transient ischemic attack (TIA), and cerebral infarction without residual deficits; Z90.49 Acquired absence of other specified parts of digestive tract; Z90.710 Acquired absence of both cervix and uterus; Z66 Do not resuscitate
CPT/HCPCS: 36415; 71045; 80048; 80053; 81001; 83735; 83880; 84484; 85025; 85610; 93005; 96374; 99285-25; A9270-GY; J1940

== ENCOUNTER 2021-04-23 21:53 | Emergency (ER) | payer MEDICARE, BC ==
[2021-04-23 22:16] VITALS: BP 207/118; PULSE 83
[2021-04-23 22:54] LABS: ANION GAP 16.8 mEq/L (7-13); CHLORIDE,CL 97 mmol/L (98-107); SODIUM,NA 134 mmol/L (136-145)
[2021-04-23] MEDS ORDERED: Ondansetron 4 MG/2 ML SDV IVPUSH ONE (23:07)
[2021-04-23] MEDS ORDERED: fentaNYL 100 MCG/2 ML SDV IVPUSH ONE (23:07)
[2021-04-24] MEDS ORDERED: Labetalol 20 MG/4 ML Syringe IVPUSH ONE (00:20)
--- NOTE | 2021-04-24 00:46 | CT ---
PROCEDURE INFORMATION: Exam: CT Abdomen And Pelvis Without Contrast Exam date and time: 04/23/2021 11:54 PM Age: 85 years old Clinical indication: Abdominal pain; Localized; Right; Prior surgery; Surgery date: 6+ months; Surgery type: Appendectomy, hysterectomy; Patient HX: HX uterine CA; Additional info: Low back pain nausea radiates right abdomen TECHNIQUE: Imaging protocol: Computed tomography of the abdomen and pelvis without contrast. Radiation optimization: All CT scans at this facility use at least one of these dose optimization techniques: automated exposure control; mA and/or kV adjustment per patient size (includes targeted exams where dose is matched to clinical indication); or iterative reconstruction. COMPARISON: CR Chest 1V Frontal 12/24/2019 8:43 PM FINDINGS: Tubes, catheters and devices: There are electronic leads in the right heart. Lungs: The visualized lung bases are clear. Heart: Moderate cardiomegaly. Liver: The liver is normal. Gallbladder and bile ducts: The gallbladder is moderately distended. There are no CT apparent gallstones. There is no wall thickening or pericholecystic fluid to suggest cholecystitis. Pancreas: The pancreas is normal. Spleen: The spleen is normal. Adrenal glands: The adrenal glands are bulky, no discrete adrenal masses. Kidneys and ureters: Bilateral renal artery calcification. 2 mm upper pole right renal collecting system calcification. 2 mm lower pole left renal collecting system calcification. There is no evidence of hydronephrosis. The ureters are normal. 4.0 cm smoothly marginated water density right renal lesion statistically reflects a benign cyst. Stomach and bowel: There is large amount of stool in the rectosigmoid.There is no evidence of colitis/diverticulitis. Non-specific/nonobstructive intestinal gas pattern. Appendix: The patient is status post appendectomy. Intraperitoneal space: Multiple surgical clips project over the pelvis and lower abdomen. No free intraperitoneal air. No free intraperitoneal fluid. Vasculature: There is severe diffuse calcific atherosclerotic plaque. There is no aortic aneurysm. Lymph nodes: There is no adenopathy. Urinary bladder: The bladder is normal. Reproductive: Status post hysterectomy. Bones/joints: There is severe disc space narrowing and endplate sclerosis and osteophyte formation identified throughout the lumbar segment. Severe diffuse facet disease is present throughout. Moderate left thoracolumbar scoliosis. Soft tissues: There is no soft tissue abnormality seen. IMPRESSION: 1. Mild gallbladder distention without associated findings. Correlate with LFTs. 2. Bilateral small intrarenal calculi. Additional small calculi could be obscured by motion. No hydronephrosis. 3. Non-specific/nonobstructive intestinal gas pattern. 4. Other findings as described 5. Right renal lesion likely a benign cyst. No further workup is recommended. COMMENTS: Consistent with the [employer]'s Incidental Findings Committee white paper (J Am Emperatriz Radiol 2018): Any incidental renal lesion less than 1 cm or classified as too small to characterize, or any incidental cystic renal lesion characterized as simple-appearing, is likely benign. No follow-up imaging is recommended for these lesions per consensus recommendations based on imaging criteria.
--- NOTE | 2021-04-24 00:52 | CT ---
PROCEDURE INFORMATION: Exam: CT Lumbar Spine Without Contrast Exam date and time: 04/23/2021 11:54 PM Age: 85 years old Clinical indication: Low back pain; Additional info: Low back pain nausea radiates right abdomen TECHNIQUE: Imaging protocol: Computed tomography images of the lumbar spine without contrast. Radiation optimization: All CT scans at this facility use at least one of these dose optimization techniques: automated exposure control; mA and/or kV adjustment per patient size (includes targeted exams where dose is matched to clinical indication); or iterative reconstruction. COMPARISON: No relevant prior studies available. FINDINGS: Vertebrae: 15 degree left thoracolumbar curve. There is 3-4 mm of posterior displacement of L3 upon L4. Approximately 4-5 mm of left lateral displacement of L2 upon 3 and L3 upon L4. Advanced degenerative disc disease throughout the lumbar segment, the height of the L5-S1 disc is relatively preserved. Vacuum discs are noted essentially all lumbar segments. Moderately severe facet disease throughout, particularly obvious at L4-L5 and L5-S1.No fracture or compression fracture seen. T11-T12: No significant compressive lesion is seen. T12-L1: No significant compressive lesion is seen. L1-L2: No significant compressive lesion is seen. L2-L3: There is moderate facet and ligamentum flavum hypertrophy.There is a mild broad-based diffuse disc bulge.There is mild acquired spinal canal stenosis at this level. L3-L4: There is moderate facet and ligamentum flavum hypertrophy.There is a mild broad-based diffuse disc bulge.There is mild acquired spinal canal stenosis at this level. L4-L5: There is a mild broad-based diffuse disc bulge.There is a moderate left-sided paracentral focal abnormality compatible with moderate focal disc herniation/protrusion. There is moderate indentation of the anterolateral aspect of the subarachnoid space.There is moderate facet and ligamentum flavum hypertrophy.There is [id number] acquired spinal canal stenosis at this level. L5-S1: There is a mild broad-based diffuse disc bulge.No significant compressive lesion is seen. Soft tissues: There is no soft tissue abnormality seen. IMPRESSION: 1. Multiple levels of mild to moderate acquired spinal canal stenosis. 2. Left focal disc abnormality L4-L5. See discussion of individual levels above. 3. No fracture or compression fracture seen.
--- NOTE | 2021-04-24 01:08 | EDM.PDOC ---
ED HPI GENERAL MEDICAL PROBLEM - General Chief Complaint: Back Pain or Injury Stated Complaint: DOESN'T FEEL GOOD, BACK HURTS Time Seen by Provider: 04/23/21 22:15 Source of Information: Reports: Patient, Family History Limitations: Reports: No Limitations - History of Present Illness INITIAL COMMENTS - FREE TEXT/NARRATIVE: ED via wheelchair with report of low back pain radiating to right side, nausea today, no vomiting, no fever, no injury or fall. Woke with discomfort. No similar. No radiation down extremities. Some worse with movement. Tylenol x 1 today.usually twice daily. Has not taken any evening medications. Not sure if BP medication in am or pm meds. Lives alone. - Related Data Allergies Allergy/AdvReac Type Severity Reaction Status Date / Time No Known Allergies Allergy Verified 02/03/20 19:45 Home Meds: Home Meds Methotrexate Sodium [Methotrexate] 20 mg PO WEEKLY 11/04/14 [History] hydroCHLOROthiazide [Hydrochlorothiazide] 25 mg PO DAILY 11/04/14 [History] Acetaminophen [Tylenol] 650 mg PO BID 12/24/19 [History] Aspirin 81 mg PO DAILY 12/24/19 [History] Folic Acid 1,200 mcg PO DAILY 12/24/19 [History] Levothyroxine 25 mcg PO ACBREAKFAST 12/24/19 [History] Metoprolol Succinate [Toprol XL 100mg] 100 mg PO DAILY 12/24/19 [History] Warfarin [Coumadin] 0.5 mg PO ASDIRECTED 12/24/19 [History] atorvaSTATin [Lipitor] 20 mg PO BEDTIME 12/24/19 [History] lisinopriL [Lisinopril] 10 mg PO DAILY 12/24/19 [History] predniSONE [Prednisone] 5 mg PO BEDTIME 12/24/19 [History] Furosemide [Lasix] 40 mg PO DAILY #30 02/04/20 [Rx] Past Medical History HEENT History: Reports: Other (See Below) Other HEENT History: lasy eye. Always looking upward Cardiovascular History: Reports: Hypertension Respiratory History: Reports: COPD Other Gastrointestinal History: diarrhea with fruit consumption Genitourinary History: Reports: Urinary Incontinence Other Genitourinary History: urge incontinence [employer] History: Reports: Musculoskeletal History: Reports: Osteoarthritis, RA Neurological History: Reports: CVA Other Neuro History: 2017 Psychiatric History: Reports: None Endocrine/Metabolic History: Reports: Hypothyroidism Oncologic (Cancer) History: Reports: Ovarian - Infectious Disease History Infectious Disease History: Reports: Chicken Pox, Measles - Past Surgical History GI Surgical History: Reports: Appendectomy Female Surgical History: Reports: Hysterectomy Oncologic Surgical History: Reports: Other (See Below) Other Oncologic Surgeries/Procedures: hysterectomy Social & Family History - Family History Family Medical History: No Pertinent Family History - Tobacco Use Tobacco Use Status *Q: Never Tobacco User Second Hand Smoke Exposure: No - Caffeine Use Caffeine Use: Reports: Coffee - Living Situation & Occupation Living situation: Reports: , Alone Occupation: Retired ED ROS GENERAL - Review of Systems Review Of Systems: Comprehensive ROS is negative, except as noted in HPI. ED EXAM,LOWER BACK PAIN/INJURY - Physical Exam Exam: See Below Exam Limited By: No Limitations General Appearance: Alert, Thin Eye Exam: Bilateral Eye: EOMI Ears: Normal External Exam, Hearing Loss Throat/Mouth: Normal Inspection Head: Atraumatic, Normocephalic Neck: Normal Inspection Respiratory/Chest: No Respiratory Distress, Lungs Clear Cardiovascular: Normal Peripheral Pulses, Regular Rate, Rhythm GI/Abdominal: Soft Back Exam: Vertebral Tenderness (low lumbar to upper sacral), Other (kyyphotic). No: CVA Tenderness (L), CVA Tenderness (R) Neurological: Alert Psychiatric: Normal Affect Skin Exam: Warm, Dry, Wound/Incision (dressing in place left lower posterior leg above ankle. CDI. No redness, slight swelling of lower extremity. ) Course - Vital Signs Last Recorded V/S: Last Vital Signs Temp 97.9 F 04/23/21 22:13 Pulse 83 04/23/21 22:13 Resp 18 04/23/21 22:13 BP 207/118 H 04/23/21 22:13 Pulse Ox 96 04/23/21 22:13 - Orders/Labs/Meds Orders: Active Orders 24 hr Category Date Time Status CULTURE BLOOD [BC] Stat Lab 04/23/21 22:23 Received Labs: Laboratory Tests 04/23/21 04/23/21 04/23/21 Range/Units 22:23 22:23 22:23 WBC 5.8 (5.0-10.0) 10^3/uL RBC 5.12 (4.2-5.4) 10^6/uL Hgb 15.0 (12.0-16.0) g/dL Hct 45.3 (37.0-47.0) % MCV 88.5 D (80-100) fL MCH 29.3 (27.0-34.0) pg MCHC 33.1 (33.0-35.0) g/dL Plt Count 130 L (150-450) 10^3/uL Neut % (Auto) 80.9 H (42.2-75.2) % Lymph % (Auto) 12.7 L (20.5-50.1) % [place] % (Auto) 5.7 (2-8) % Eos % (Auto) 0.2 L (1.0-3.0) % Baso % (Auto) 0.5 (0.0-1.0) % PT (9.0-12.0) SEC INR (0.9-1.2) Sodium 134 L (136-145) mmol/L Potassium 3.8 (3.5-5.1) mmol/L Chloride 97 L (98-107) mmol/L Carbon Dioxide 24 (21-32) mmol/L Anion Gap 16.8 H (7-13) mEq/L BUN 10 (7-18) mg/dL Creatinine 0.90 (0.55-1.02) mg/dL Est Cr Clr Drug Dosing TNP Estimated GFR (MDRD) 59 BUN/Creatinine Ratio 11.1 (No establ ref range) Glucose 186 H (70-99) mg/dL Lactic Acid 4.5 H* (0.4-2.0) mmol/L Calcium 9.2 (8.5-10.1) mg/dL Magnesium 1.7 L (1.8-2.4) mg/dL Total Bilirubin 1.1 H (0.2-1.0) mg/dL AST 18 (15-37) U/L ALT 13 L (14-59) U/L Alkaline Phosphatase 102 (46-116) U/L B-Natriuretic Peptide 328 H (0-100) pg/ml Total Protein 7.7 (6.4-8.2) g/dL Albumin 3.4 (3.4-5.0) g/dL Globulin 4.3 Albumin/Globulin Ratio 0.8 Urine Color (YELLOW) Urine Appearance (CLEAR) Urine pH (5.0-9.0) Ur Specific [place] (1.005-1.030) Urine Protein (NEGATIVE) Urine Glucose (UA) (NEGATIVE) Urine Ketones (NEGATIVE) Urine Occult Blood (NEGATIVE) Urine Nitrite (NEGATIVE) Urine Bilirubin (NEGATIVE) Urine Urobilinogen (0.2-1.0) mg/dL Ur Leukocyte Esterase (NEGATIVE) U Hyaline Cast (Auto) Urine RBC (0-5) /HPF Urine WBC (0-5/HPF) /HPF Ur Epithelial Cells (NOT SEEN) /HPF Amorphous Sediment (NOT SEEN) /HPF Urine Bacteria (0-FEW/HPF) /HPF Fine Granular Casts (NOT SEEN) /LPF Urine Mucus (NOT SEEN) /LPF 04/23/21 04/24/21 Range/Units 22:23 00:26 WBC (5.0-10.0) 10^3/uL RBC (4.2-5.4) 10^6/uL Hgb (12.0-16.0) g/dL Hct (37.0-47.0) % MCV (80-100) fL MCH (27.0-34.0) pg MCHC (33.0-35.0) g/dL Plt Count (150-450) 10^3/uL Neut % (Auto) (42.2-75.2) % Lymph % (Auto) (20.5-50.1) % [place] % (Auto) (2-8) % Eos % (Auto) (1.0-3.0) % Baso % (Auto) (0.0-1.0) % PT 13.5 H D (9.0-12.0) SEC INR 1.4 H (0.9-1.2) Sodium (136-145) mmol/L Potassium (3.5-5.1) mmol/L Chloride (98-107) mmol/L Carbon Dioxide (21-32) mmol/L Anion Gap (7-13) mEq/L BUN (7-18) mg/dL Creatinine (0.55-1.02) mg/dL Est Cr Clr Drug Dosing Estimated GFR (MDRD) BUN/Creatinine Ratio (No establ ref range) Glucose (70-99) mg/dL Lactic Acid (0.4-2.0) mmol/L Calcium (8.5-10.1) mg/dL Magnesium (1.8-2.4) mg/dL Total Bilirubin (0.2-1.0) mg/dL AST (15-37) U/L ALT (14-59) U/L Alkaline Phosphatase (46-116) U/L B-Natriuretic Peptide (0-100) pg/ml Total Protein (6.4-8.2) g/dL Albumin (3.4-5.0) g/dL Globulin Albumin/Globulin Ratio Urine Color Yellow (YELLOW) Urine Appearance Clear (CLEAR) Urine pH 7.0 (5.0-9.0) Ur Specific [place] >= 1.030 (1.005-1.030) Urine Protein >=300 H (NEGATIVE) Urine Glucose (UA) Negative (NEGATIVE) Urine Ketones Trace H (NEGATIVE) Urine Occult Blood Small H (NEGATIVE) Urine Nitrite Negative (NEGATIVE) Urine Bilirubin Negative (NEGATIVE) Urine Urobilinogen 0.2 (0.2-1.0) mg/dL Ur Leukocyte Esterase Negative (NEGATIVE) U Hyaline Cast (Auto) Occasional Urine RBC 5-10 H (0-5) /HPF Urine WBC 0-5 (0-5/HPF) /HPF Ur Epithelial Cells Rare (NOT SEEN) /HPF Amorphous Sediment Occasional (NOT SEEN) /HPF Urine Bacteria Occasional (0-FEW/HPF) /HPF Fine Granular Casts Occasional H (NOT SEEN) /LPF Urine Mucus Rare (NOT SEEN) /LPF Meds: Medications Discontinued Medications Generic Name Dose Route Start Last Admin Trade Name Dimitri PRN Reason Stop Dose Admin Acetaminophen 650 mg 04/24/21 01:41 04/24/21 01:44 Acetaminophen 325 Mg Tab PO 04/24/21 01:42 650 mg NOW ONE Administration Fentanyl 25 mcg 04/23/21 23:07 04/23/21 23:16 Fentanyl 100 Mcg/2 Ml Sdv IVPUSH 04/23/21 23:08 25 mcg ONETIME ONE Administration Labetalol HCl 10 mg 04/24/21 00:20 04/24/21 00:27 Labetalol 20 Mg/4 Ml Syringe IVPUSH 04/24/21 00:21 10 mg ONETIME ONE Administration Ondansetron HCl 4 mg 04/23/21 23:07 04/23/21 23:16 Ondansetron 4 Mg/2 Ml Sdv IVPUSH 04/23/21 23:08 4 mg ONETIME ONE Administration Departure - Departure Time of Disposition: 01:04 Disposition: Home, Self-Care 01 Condition: Good Clinical Impression: Hypertension Low back pain Qualifiers: Chronicity: acute Back pain laterality: unspecified Sciatica presence: without sciatica Qualified Code(s): M54.5 - Low back pain Degenerative disc disease Qualifiers: Spinal region: lumbar Qualified Code(s): M51.36 - Other intervertebral disc degeneration, lumbar region - Discharge Information *PRESCRIPTION DRUG MONITORING PROGRAM REVIEWED*: No *COPY OF PRESCRIPTION DRUG MONITORING REPORT IN PATIENT MELECIO: No Instructions: Acute Back Pain, Adult Referrals: PCP,None [Primary Care Provider] - Forms: ED Department Discharge Additional Instructions: Increase tylenol 3 times daily no more than 3000mg/ 24 hours clinic follow up Wednesday or Wednesday with primary care to recheck Warm pack to low back as needed use walker for ambulating or with transfers Sepsis Event Note (ED) - Focused Exam Vital Signs: Vital Signs Temp Pulse Resp BP Pulse Ox 04/23/21 22:13 97.9 F 83 18 207/118 H 96 - My Orders Last 24 Hours: My Active Orders 04/23/21 22:23 CULTURE BLOOD [BC] Stat - Assessment/Plan Last 24 Hours: My Active Orders 04/23/21 22:23 CULTURE BLOOD [BC] Stat
[2021-04-24] MEDS ORDERED: Acetaminophen 325 MG Tab PO ONE (01:41)
== END 2021-04-24 02:10 | disposition home or self-care (01) ==
LOC: DL.ED 21:53
DX: M51.36 Other intervertebral disc degeneration, lumbar region (principal); I10 Essential (primary) hypertension; J44.9 Chronic obstructive pulmonary disease, unspecified; M06.9 Rheumatoid arthritis, unspecified; E03.9 Hypothyroidism, unspecified; Z79.82 Long term (current) use of aspirin; Z79.899 Other long term (current) drug therapy
CPT/HCPCS: 36415; 72131; 74176; 80053; 81001; 83605; 83735; 83880; 85025; 85610; 87040; 96374; 96375; 99284; A9270; J2405; J3010; J3490

== ENCOUNTER 2021-04-27 11:09 | Emergency (ER) | payer MEDICARE, BC ==
[2021-04-27 11:32] VITALS: BP 115/63; PULSE 83
[2021-04-27 12:07] LABS: ANION GAP 18.9 mEq/L (7-13); CHLORIDE,CL 106 mmol/L (98-107); SODIUM,NA 143 mmol/L (136-145)
--- NOTE | 2021-04-27 12:34 | EDM.PDOC ---
<Rita Stephens - Last Filed: 04/27/21 14:41> ED HPI GENERAL MEDICAL PROBLEM - General Chief Complaint: Gastrointestinal Problem Stated Complaint: VOMITING NOT FEELING WELL HERE ON WED Time Seen by Provider: 04/27/21 12:00 - Related Data Allergies Allergy/AdvReac Type Severity Reaction Status Date / Time No Known Allergies Allergy Verified 04/27/21 11:33 Home Meds: Home Meds Methotrexate Sodium [Methotrexate] 20 mg PO WEEKLY 11/04/14 [History] hydroCHLOROthiazide [Hydrochlorothiazide] 25 mg PO DAILY 11/04/14 [History] Acetaminophen [Tylenol] 650 mg PO BID 12/24/19 [History] Aspirin 81 mg PO DAILY 12/24/19 [History] Folic Acid 1,200 mcg PO DAILY 12/24/19 [History] Levothyroxine 25 mcg PO ACBREAKFAST 12/24/19 [History] Metoprolol Succinate [Toprol XL 100mg] 100 mg PO DAILY 12/24/19 [History] Warfarin [Coumadin] 0.5 mg PO ASDIRECTED 12/24/19 [History] atorvaSTATin [Lipitor] 20 mg PO BEDTIME 12/24/19 [History] lisinopriL [Lisinopril] 10 mg PO DAILY 12/24/19 [History] predniSONE [Prednisone] 5 mg PO BEDTIME 12/24/19 [History] Furosemide [Lasix] 40 mg PO DAILY #30 02/04/20 [Rx] #1 Interpretation EKG Date: 04/27/21 Time: 11:39 Rhythm: A-Fib Rate (Beats/Min): 71 P-Wave: Present QRS: LBBB Comparison: Change From Previous EKG Departure - Departure Disposition: DC/Tfer to Acute Hospital 02 Clinical Impression: GI bleed Qualifiers: GI bleed type/associated pathology: unspecified peptic ulcer Qualified Code(s): K27.4 - Chronic or unspecified peptic ulcer, site unspecified, with hemorrhage - Discharge Information Forms: ED Department Discharge, Interfacility Transfer EMTALA <Phillip Roca - Last Filed: 04/27/21 15:42> ED HPI GENERAL MEDICAL PROBLEM - General Source of Information: Reports: Patient, Family History Limitations: Reports: No Limitations - History of Present Illness INITIAL COMMENTS - FREE TEXT/NARRATIVE: 85 y/o F brought in by daughter for nausea/vomiting and low back pn. Pt has been nauseated for 4 days but had not vomited until this morning. She also reports back pn that is sharp in nature, located at the waist line on the spine, constant, non radiating. Chauncey reports the pt was supposed to be being treated for a cellulitis of her left calf but her antibiotics have not arrived yet. Chauncey also states the pt has had diarrhea today. Hx of chf, ventricular pacemaker, hypothyroidism, is on warfarin. Denies fever, cough, chills, drugs, etoh, cp, db, abd pn, pelvic pn, extremity pn. Onset: Gradual Duration: Day(s):, Getting Worse Location: Reports: Back, Generalized Abdominal Pain Score (Numeric/FACES): 7 Past Medical History HEENT History: Reports: Other (See Below) Other HEENT History: lasy eye. Always looking upward Cardiovascular History: Reports: Hypertension Respiratory History: Reports: COPD Other Gastrointestinal History: diarrhea with fruit consumption Genitourinary History: Reports: Urinary Incontinence Other Genitourinary History: urge incontinence [employer] History: Reports: Musculoskeletal History: Reports: Osteoarthritis, RA Neurological History: Reports: CVA Other Neuro History: 2017 Psychiatric History: Reports: None Endocrine/Metabolic History: Reports: Hypothyroidism Oncologic (Cancer) History: Reports: Ovarian - Infectious Disease History Infectious Disease History: Reports: Chicken Pox, Measles - Past Surgical History GI Surgical History: Reports: Appendectomy Female Surgical History: Reports: Hysterectomy Oncologic Surgical History: Reports: Other (See Below) Other Oncologic Surgeries/Procedures: hysterectomy Social & Family History - Family History Family Medical History: No Pertinent Family History - Tobacco Use Tobacco Use Status *Q: Never Tobacco User Second Hand Smoke Exposure: No - Caffeine Use Caffeine Use: Reports: Coffee - Recreational Drug Use Recreational Drug Use: No - Living Situation & Occupation Living situation: Reports: , Alone Occupation: Retired ED ROS GENERAL - Review of Systems Review Of Systems: Comprehensive ROS is negative, except as noted in HPI. ED EXAM, GI/ABD - Physical Exam Exam: See Below General Appearance: Thin, Other (appears tired) Ears: Normal External Exam, Normal Canal, Hearing Grossly Normal, Normal TMs Nose: Normal Inspection, Normal Mucosa, No Blood Throat/Mouth: Other (dry oropharynx, tonue dry and furrowed.) Head: Atraumatic, Normocephalic Neck: Supple, Non-Tender Respiratory/Chest: Lungs Clear, Normal Breath Sounds Cardiovascular: No Edema, Irregularly Irregular GI/Abdominal Exam: Soft, Non-Tender (Female) Exam: Deferred Rectal (Female) Exam: Deferred Back Exam: Normal Inspection, Full Range of Motion Extremities: Normal Range of Motion, No Pedal Edema, Other (4cm ulceration to posterior L calf. Pt has reportedly had diarrhea and her bandage was laidened with feces. ) Neurological: Slow to Respond Skin Exam: Dry, Intact, Cool Course - Vital Signs Last Recorded V/S: Last Vital Signs Temp 96.9 F 04/27/21 12:39 Pulse 83 04/27/21 11:31 Resp 18 04/27/21 11:31 BP 115/63 04/27/21 11:31 Pulse Ox 100 04/27/21 11:31 - Orders/Labs/Meds Orders: Active Orders 24 hr Category Date Time Status Peripheral IV Care [RC] . DIRECTED Care 04/27/21 13:25 Active CULTURE BLOOD [BC] Stat Lab 04/27/21 11:38 Received CULTURE BLOOD [BC] Stat Lab 04/27/21 12:37 Received UA RFX DENYS AND CULT IF INDIC [URIN] Stat Lab 04/27/21 11:22 Ordered Pantoprazole [ProTONIX IV] 40 mg Med 04/27/21 13:30 Active Sodium Chloride 0.9% [Normal Saline] 100 ml IV .CONTINUOS Sodium Chloride 0.9% [Normal Saline] 500 ml Med 04/27/21 13:00 Active IV .BOLUS Sodium Chloride 0.9% [Saline Flush] Med 04/27/21 13:25 Active 10 ml FLUSH ASDIRECTED PRN Blood Culture x2 Reflex Set [OM.PC] Stat Oth 04/27/21 11:21 Ordered Peripheral IV Insertion Adult [OM.PC] Routine Oth 04/27/21 13:25 Ordered Medication Orders Sodium Chloride (Normal Saline) 500 mls @ 999 mls/hr IV .BOLUS [place] Last Admin: 04/27/21 13:48 Dose: 999 mls/hr Documented by: BRENDAN Pantoprazole Sodium 40 mg/ (Sodium Chloride) 100 mls @ 20 mls/hr IV .CONTINUOS [place] Last Admin: 04/27/21 13:51 Dose: 20 mls/hr Documented by: WETTCAN Sodium Chloride (Sodium Chloride 0.9% 10 Ml Syringe) 10 ml FLUSH ASDIRECTED PRN PRN Reason: Keep Vein Open Labs: Laboratory Tests 04/27/21 04/27/21 04/27/21 Range/Units 11:38 11:38 11:38 WBC 12.4 H (5.0-10.0) 10^3/uL RBC 3.75 L (4.2-5.4) 10^6/uL Hgb 10.9 L D (12.0-16.0) g/dL Hct 34.6 L (37.0-47.0) % MCV 92.3 D (80-100) fL MCH 29.1 (27.0-34.0) pg MCHC 31.5 L (33.0-35.0) g/dL Plt Count 159 (150-450) 10^3/uL Neut % (Auto) 72.8 (42.2-75.2) % Lymph % (Auto) 21.9 (20.5-50.1) % Gem % (Auto) 5.0 (2-8) % Eos % (Auto) 0.2 L (1.0-3.0) % Baso % (Auto) 0.1 (0.0-1.0) % PT (9.0-12.0) SEC INR (0.9-1.2) Sodium 143 (136-145) mmol/L Potassium 3.9 (3.5-5.1) mmol/L Chloride 106 (98-107) mmol/L Carbon Dioxide 22 (21-32) mmol/L Anion Gap 18.9 H (7-13) mEq/L BUN 52 H D (7-18) mg/dL Creatinine 0.95 (0.55-1.02) mg/dL Est Cr Clr Drug Dosing TNP Estimated GFR (MDRD) 56 BUN/Creatinine Ratio 54.7 (No establ ref range) Glucose 216 H (70-99) mg/dL Lactic Acid 6.2 H* (0.4-2.0) mmol/L Calcium 8.9 (8.5-10.1) mg/dL Phosphorus (2.6-4.7) mg/dL Magnesium (1.8-2.4) mg/dL Total Bilirubin 0.8 (0.2-1.0) mg/dL AST 19 (15-37) U/L ALT 12 L (14-59) U/L Alkaline Phosphatase 70 (46-116) U/L Troponin I High Sens 18 (<=51) pg/mL C-Reactive Protein 0.8 (0.0-0.9) mg/dL B-Natriuretic Peptide 118 H (0-100) pg/ml Total Protein 6.9 (6.4-8.2) g/dL Albumin 3.1 L (3.4-5.0) g/dL Globulin 3.8 Albumin/Globulin Ratio 0.82 Amylase 18 L (25-115) U/L Lipase 48 L (73-393) U/L TSH, Ultra Sensitive (0.36-3.74) uIU/mL SARS-CoV-2 RNA ([facility]) (NEGATIVE) 04/27/21 04/27/21 04/27/21 Range/Units 11:38 11:38 11:38 WBC (5.0-10.0) 10^3/uL RBC (4.2-5.4) 10^6/uL Hgb (12.0-16.0) g/dL Hct (37.0-47.0) % MCV (80-100) fL MCH (27.0-34.0) pg MCHC (33.0-35.0) g/dL Plt Count (150-450) 10^3/uL Neut % (Auto) (42.2-75.2) % Lymph % (Auto) (20.5-50.1) % Gem % (Auto) (2-8) % Eos % (Auto) (1.0-3.0) % Baso % (Auto) (0.0-1.0) % PT 12.4 H (9.0-12.0) SEC INR 1.2 (0.9-1.2) Sodium (136-145) mmol/L Potassium (3.5-5.1) mmol/L Chloride (98-107) mmol/L Carbon Dioxide (21-32) mmol/L Anion Gap (7-13) mEq/L BUN (7-18) mg/dL Creatinine (0.55-1.02) mg/dL Est Cr Clr Drug Dosing Estimated GFR (MDRD) BUN/Creatinine Ratio (No establ ref range) Glucose (70-99) mg/dL Lactic Acid (0.4-2.0) mmol/L Calcium (8.5-10.1) mg/dL Phosphorus 3.2 (2.6-4.7) mg/dL Magnesium 2.0 (1.8-2.4) mg/dL Total Bilirubin (0.2-1.0) mg/dL AST (15-37) U/L ALT (14-59) U/L Alkaline Phosphatase (46-116) U/L Troponin I High Sens (<=51) pg/mL C-Reactive Protein (0.0-0.9) mg/dL B-Natriuretic Peptide (0-100) pg/ml Total Protein (6.4-8.2) g/dL Albumin (3.4-5.0) g/dL Globulin Albumin/Globulin Ratio Amylase (25-115) U/L Lipase (73-393) U/L TSH, Ultra Sensitive 22.67 H (0.36-3.74) uIU/mL SARS-CoV-2 RNA ([facility]) (NEGATIVE) 04/27/21 Range/Units 12:29 WBC (5.0-10.0) 10^3/uL RBC (4.2-5.4) 10^6/uL Hgb (12.0-16.0) g/dL Hct (37.0-47.0) % MCV (80-100) fL MCH (27.0-34.0) pg MCHC (33.0-35.0) g/dL Plt Count (150-450) 10^3/uL Neut % (Auto) (42.2-75.2) % Lymph % (Auto) (20.5-50.1) % Gem % (Auto) (2-8) % Eos % (Auto) (1.0-3.0) % Baso % (Auto) (0.0-1.0) % PT (9.0-12.0) SEC INR (0.9-1.2) Sodium (136-145) mmol/L Potassium (3.5-5.1) mmol/L Chloride (98-107) mmol/L Carbon Dioxide (21-32) mmol/L Anion Gap (7-13) mEq/L BUN (7-18) mg/dL Creatinine (0.55-1.02) mg/dL Est Cr Clr Drug Dosing Estimated GFR (MDRD) BUN/Creatinine Ratio (No establ ref range) Glucose (70-99) mg/dL Lactic Acid (0.4-2.0) mmol/L Calcium (8.5-10.1) mg/dL Phosphorus (2.6-4.7) mg/dL Magnesium (1.8-2.4) mg/dL Total Bilirubin (0.2-1.0) mg/dL AST (15-37) U/L ALT (14-59) U/L Alkaline Phosphatase (46-116) U/L Troponin I High Sens (<=51) pg/mL C-Reactive Protein (0.0-0.9) mg/dL B-Natriuretic Peptide (0-100) pg/ml Total Protein (6.4-8.2) g/dL Albumin (3.4-5.0) g/dL Globulin Albumin/Globulin Ratio Amylase (25-115) U/L Lipase (73-393) U/L TSH, Ultra Sensitive (0.36-3.74) uIU/mL SARS-CoV-2 RNA ([facility]) Negative (NEGATIVE) Meds: Medications Generic Name Dose Route Start Last Admin Trade Name Freq PRN Reason Stop Dose Admin Sodium Chloride 500 mls @ 999 mls/hr 04/27/21 13:00 04/27/21 13:48 Normal Saline IV 999 mls/hr .BOLUS [place] Administration Pantoprazole Sodium 40 mg/ 100 mls @ 20 mls/hr 04/27/21 13:30 04/27/21 13:51 Sodium Chloride IV 20 mls/hr .CONTINUOS [place] Administration Sodium Chloride 10 ml 04/27/21 13:25 Sodium Chloride 0.9% 10 Ml Syringe FLUSH ASDIRECTED PRN Keep Vein Open Discontinued Medications Generic Name Dose Route Start Last Admin Trade Name Freq PRN Reason Stop Dose Admin Vancomycin HCl 1 gm/ Sodium 250 mls @ 167 mls/hr 04/27/21 13:02 04/27/21 13:55 Chloride IV 04/27/21 14:31 167 mls/hr ONETIME ONE Administration Piperacillin Sod/Tazobactam 100 mls @ 200 mls/hr 04/27/21 13:05 04/27/21 13:17 Sod 3.375 gm/ Sodium Chloride IV 04/27/21 13:34 200 mls/hr ONETIME ONE Administration Levothyroxine Sodium 150 mcg 04/28/21 06:00 Levothyroxine 150 Mcg Tab PO ACBREAKFAST [place] Levothyroxine Sodium 150 mcg 04/28/21 14:37 Levothyroxine 150 Mcg Tab PO 04/28/21 14:38 ONETIME ONE Levothyroxine Sodium 150 mcg 04/27/21 15:00 04/27/21 14:58 Levothyroxine 150 Mcg Tab PO 04/27/21 15:01 150 mcg ONETIME ONE Administration Ondansetron HCl 4 mg 04/27/21 12:58 04/27/21 13:17 Ondansetron 4 Mg/2 Ml Sdv IVPUSH 04/27/21 12:59 4 mg ONETIME ONE Administration Pantoprazole Sodium 80 mg 04/27/21 13:22 04/27/21 13:37 Pantoprazole 40 Mg Vial IVPUSH 04/27/21 13:23 80 mg .BOLUS ONE Administration - Re-Assessments/Exams Free Text/Narrative Re-Assessment/Exam: 04/27/21 15:36 The pt has a GI bleed and hypothyroidism and requires a higher level of care to further manage her condition I spoke called [facility] at 1414 and [facility] at 1422 and both had not beds available. I called [facility] at 1450 and they called back at 1508, I spoke with Dr. Tomas and he accepted the pt for inpatient treatment at [facility] at 1512 hrs. Departure - Departure Time of Disposition: 15:40 Condition: Fair - Discharge Information *PRESCRIPTION DRUG MONITORING PROGRAM REVIEWED*: Not Applicable *COPY OF PRESCRIPTION DRUG MONITORING REPORT IN PATIENT MELECIO: Not Applicable Sepsis Event Note (ED) - Evaluation Sepsis Screening Result: No Definite Risk - Focused Exam Vital Signs: Vital Signs Temp Temp Pulse Resp BP Pulse Ox 04/27/21 12:39 96.9 F 04/27/21 11:31 98.1 F 83 18 115/63 100 - My Orders Last 24 Hours: My Active Orders 04/27/21 13:00 Sodium Chloride 0.9% [Normal Saline] 500 ml IV .BOLUS 04/27/21 13:25 Peripheral IV Care [RC] . DIRECTED Sodium Chloride 0.9% [Saline Flush] 10 ml FLUSH ASDIRECTED PRN Peripheral IV Insertion Adult [OM.PC] Routine 04/27/21 13:30 Pantoprazole [ProTONIX IV] 40 mg Sodium Chloride 0.9% [Normal Saline] 100 ml IV .CONTINUOS - Assessment/Plan Last 24 Hours: My Active Orders 04/27/21 13:00 Sodium Chloride 0.9% [Normal Saline] 500 ml IV .BOLUS 04/27/21 13:25 Peripheral IV Care [RC] . DIRECTED Sodium Chloride 0.9% [Saline Flush] 10 ml FLUSH ASDIRECTED PRN Peripheral IV Insertion Adult [OM.PC] Routine 04/27/21 13:30 Pantoprazole [ProTONIX IV] 40 mg Sodium Chloride 0.9% [Normal Saline] 100 ml IV .CONTINUOS
[2021-04-27] MEDS ORDERED: Ondansetron 4 MG/2 ML SDV IVPUSH ONE (12:58)
[2021-04-27] MEDS ORDERED: Sodium Chloride 0.9% 500 ML IV SCH (13:00)
[2021-04-27] MEDS ORDERED: Piperacillin/Tazobactam 3.375 GM in Sodium Chloride 0.9% 100 ML IV ONE (13:05)
[2021-04-27] MEDS ORDERED: Pantoprazole 40 MG Vial IVPUSH ONE (13:22)
[2021-04-27] MEDS ORDERED: Sodium Chloride 0.9% 10 ML Syringe FLUSH PRN (13:25)
[2021-04-27] MEDS ORDERED: Pantoprazole 40 MG in Sodium Chloride 0.9% 100 ML IV SCH (13:30)
--- NOTE | 2021-04-27 13:53 | CR ---
PROCEDURE INFORMATION: Exam: XR Chest Exam date and time: 04/27/2021 1:41 PM Age: 85 years old Clinical indication: Other: Elevated lactic, elevated wbc TECHNIQUE: Imaging protocol: XR of the chest. Views: 1 view. COMPARISON: CR Chest 1V Frontal 02/03/2020 8:09 PM FINDINGS: Tubes, catheters and devices: A pacemaker device is present and its leads are in appropriate position. Lungs: The pulmonary vasculature is not engorged. The lungs are normal. Pleural spaces: There are no pleural effusions visualized. Heart/Mediastinum: The heart is not enlarged. Bones/joints: Unremarkable IMPRESSION: No acute abnormality.
[2021-04-27] MEDS ORDERED: Levothyroxine 150 MCG Tab PO ONE (15:00)
[2021-04-28] MEDS ORDERED: Levothyroxine 150 MCG Tab PO SCH (06:00)
[2021-04-28] MEDS ORDERED: Levothyroxine 150 MCG Tab PO ONE (14:37)
== END 2021-04-27 15:59 ==
LOC: DL.ED 11:09
DX: K27.4 Chronic or unspecified peptic ulcer, site unspecified, with hemorrhage (principal); I10 Essential (primary) hypertension; J44.9 Chronic obstructive pulmonary disease, unspecified; M06.9 Rheumatoid arthritis, unspecified; E03.9 Hypothyroidism, unspecified; I44.7 Left bundle-branch block, unspecified; Z79.82 Long term (current) use of aspirin; Z79.899 Other long term (current) drug therapy; Z20.822 Contact with and (suspected) exposure to COVID-19
CPT/HCPCS: 36415; 71045; 80053; 82150; 82272; 83605; 83690; 83735; 83880; 84100; 84443; 84484; 85025; 85610; 86140; 87040; 93005; 96365; 96366; 96367; 96375; 99285; A9270; C9113; J2405; J2543; J3370; J7040; J7050; U0002